=== PATIENT | male | born 1955 | race Two or more races ===

== ENCOUNTER 2016-08-16 21:42 | Inpatient (IN) | payer OTHER, MEDICAID ==
[~2016-08-16] VITALS: Ht 172.7 cm; Wt 144.0 kg
[~2016-08-16 21:42] MED LIST: ATOR10TA PO; CARV6.2551 PO; FUR40T PO
[2016-08-16 23:07] LABS: Basophils # (auto) 0 uL; Basophils % (auto) 0.4 % (0.0-2.0); CONDITION Y; DEFINITIVE SEE PRINTOUT; Eosinophils # (auto) 0.1 uL; Eosinophils % (auto) 1.1 % (0.0-7.0); Hematocrit 40.1 % (41.0-53.0); Hemoglobin 12.6 g/dL (13.5-17.5); Lymphocytes # (auto) 1.4 uL; Lymphocytes % (auto) 14.2 % (10.0-50.0); Mean Corpuscular Hemoglobin 27.2 pg (28.0-32.0); Mean Corpuscular Hgb Conc. 31.3 g/dL (32.0-36.0); Monocytes # (auto) 0.8 uL; Monocytes % (auto) 8.2 % (0.0-12.0); Neutrophils # (auto) 7.6 uL; Neutrophils % (auto) 76.1 % (37.0-80.0); Platelet Count (auto) 183 10^3/uL (140-450)
[2016-08-16 23:15] LABS: Allen Test Yes; Base Excess 2.6 mmol/L (-2.0-2.0); Blood 02Sat 93.2 % (96-100); Blood COHb 0.9 % (0.5-1.5); Blood MetHb 0.4 % (0.0-1.5); HCO3 29.4 mmol/L (22-26.0); HHb 6.7 % (0.0-5.0); MODE NASAL CANNULA; PCO2 55.1 mmHg (35.0-45.0); PCO2(T) 55.1 mmHg (35.0-45.0); PO2 75.7 mmHg (80.0-100.0); PO2(T) 75.7 mmHg (80.0-100.0); Sample Type Arterial; pH 7.345 (7.350-7.450)
[2016-08-16 23:22] LABS: Red Cell Distribution Width 22.9 % (11.6-16.0)
[2016-08-16 23:23] LABS: INR 1.01 (0.9-1.15); Partial Thromboplastin Time 30.6 sec (22.64-33.71)
[2016-08-16 23:27] LABS: Albumin 3.5 g/dL (3.4-5.0); Anion Gap 9 (5-15); Aspartate Aminotransferase 15 U/L (15-37); BUN/Creatinine Ratio 19.3; Blood Urea Nitrogen 17 mg/dL (7-18); Calcium 7.8 mg/dL (8.5-10.1); Carbon Dioxide 33 mmol/L (21-32); Chloride 103 mmol/L (98-107); GFR African American 114 mL/min; GFR Non-African American 94 mL/min; Glucose 116 mg/dL (74-106); Magnesium 2.3 mg/dL (1.6-2.6); Potassium 3.6 mmol/L (3.5-5.1); Sodium 145 mmol/L (136-145)
[2016-08-16 23:32] LABS: Alkaline Phosphatase 96 U/L (45-117); Bilirubin, Total 0.4 mg/dL (0.2-1.0); Total Protein 7.4 g/dL (6.4-8.2)
[2016-08-16 23:39] LABS: B-Type Natriuretic Peptide 171.66 pg/mL (0-100)
[2016-08-16 23:44] LABS: Temperature: 24.3 C (20.0-25.0)
[2016-08-17] MEDS ORDERED: IOHEXOL 350 MG/ML 100ML IJ ONE (00:32)
[2016-08-17 00:35] LABS: Anisocytosis Slight; Platelet Estimate Adequate
[2016-08-17] MEDS ORDERED: cefTRIAXone 1GM/50ML D5W 50 ML IV ONE (02:00)
[2016-08-17] MEDS ORDERED: AZITHROMYCIN 500MG/D5W 250ML 250 ML IV ONE (02:00)
[2016-08-17] MEDS ORDERED: SODIUM CHLORIDE 0.9% 500 ML IV ONE (02:00)
[2016-08-17] MEDS ORDERED: HYDROmorphone HCL 2 MG/ML VL IV PRN (06:00)
[2016-08-17] MEDS ORDERED: DEXTROSE (50%) 50ML SYRG IV PRN (06:00)
[2016-08-17] MEDS ORDERED: NITROGLYCERIN 0.4 MG SL TAB SL PRN (06:00)
[2016-08-17] MEDS ORDERED: MORPHINE SULF INJ 2 MG/ML SYRINGE 1ML IV PRN (06:00)
[2016-08-17] MEDS ORDERED: LACTULOSE 20Gm/30ML SOLN PO PRN (06:00)
[2016-08-17] MEDS ORDERED: methylPREDNISolone SOD SUCC 125 MG/2 ML VL IV SCH (06:00)
[2016-08-17] MEDS: SODIUM CHLOR 0.9% PF (SALINE LOCK) 10ML VIAL IV SCH ×3 (06:15→21:59)
[2016-08-17] MEDS: methylPREDNISolone SOD SUCC 125 MG/2 ML VL IV SCH ×2 (06:23→09:59)
[2016-08-17] MEDS: ACCU-CHEK COMFORT CURVE STRIP VI SCH ×3 (06:23→18:12)
[2016-08-17] MEDS: InsuLIN REG 1unit/0.01ml Soln (100units/ml) SC SCH ×3 (06:30→18:12)
[2016-08-17] MEDS: IPRATROPIUM BROM 0.5 MG/2.5ML INH SOL NEB SCH ×5 (07:30→21:42)
[2016-08-17] MEDS: ALBUTEROL SULF 2.5 MG/0.5ML(0.5%) NEB SOLN NEB SCH ×5 (07:30→21:42)
[2016-08-17] MEDS: cefTRIAXone 1GM/50ML D5W 50 ML IV SCH (08:23)
[2016-08-17] MEDS: CARVEDILOL 3.125 MG TAB PO SCH ×2 (09:59→21:59)
[2016-08-17] MEDS: PANTOPRAZOLE SODIUM 40 MG/10 ML VIAL IV SCH (09:59)
[2016-08-17] MEDS: AZITHROMYCIN 500MG/D5W 250ML 250 ML IV SCH (09:59)
[2016-08-17] MEDS ORDERED: POTASSIUM CHLORIDE 8 MEQ TAB PO SCH (10:00)
[2016-08-17] MEDS ORDERED: DIGOXIN 0.125 MG TAB PO SCH (10:00)
[2016-08-17] MEDS: ENOXAPARIN SOD 40 MG/0.4 ML SYRINGE SC SCH (10:00)
[2016-08-17] MEDS ORDERED: FUROSEMIDE 40 MG/4 ML VIAL IV SCH (10:00)
[2016-08-17] MEDS: RIVAROXABAN 20 MG TAB PO SCH (17:57)
[2016-08-17 20:00] VITALS: BP 131/89
[2016-08-17 21:00] VITALS: BP 131/89
[2016-08-17] MEDS: FUROSEMIDE 40 MG/4 ML VIAL IV SCH (21:57)
[2016-08-17] MEDS: ATORVASTATIN 20 MG TAB PO SCH (21:57)
[2016-08-17] MEDS: ENALAPRIL MALEATE 2.5 MG TAB PO SCH (21:58)
[2016-08-17] MEDS: POTASSIUM CHLORIDE 8 MEQ TAB PO SCH (21:58)
[2016-08-18] VITALS (7 sets, daily range): BP systolic 110–149; BP diastolic 67–83
[2016-08-18] MEDS: IPRATROPIUM BROM 0.5 MG/2.5ML INH SOL NEB SCH ×6 (01:20→22:30)
[2016-08-18] MEDS: ALBUTEROL SULF 2.5 MG/0.5ML(0.5%) NEB SOLN NEB SCH ×6 (01:20→22:30)
[2016-08-18] MEDS: SODIUM CHLOR 0.9% PF (SALINE LOCK) 10ML VIAL IV SCH ×3 (06:05→21:56)
[2016-08-18] MEDS: InsuLIN REG 1unit/0.01ml Soln (100units/ml) SC SCH ×5 (06:05→23:51)
[2016-08-18] MEDS: ACCU-CHEK COMFORT CURVE STRIP VI SCH ×5 (06:05→23:51)
[2016-08-18 07:43] LABS: Basophils # (auto) 0 uL; CONDITION Y; DEFINITIVE SEE PRINTOUT; Eosinophils # (auto) 0 uL; Hemoglobin 12.2 g/dL (13.5-17.5); Lymphocytes # (auto) 0.6 uL; Lymphocytes % (auto) 6.1 % (10.0-50.0); Mean Corpuscular Hemoglobin 27.8 pg (28.0-32.0); Mean Corpuscular Hgb Conc. 32.1 g/dL (32.0-36.0); Mean Corpuscular Volume 86.6 fL (80.0-100.0); Mean Platelet Volume 9.3 fL (7.4-10.4); Monocytes # (auto) 0.3 uL; Monocytes % (auto) 2.9 % (0.0-12.0); Neutrophils # (auto) 8.8 uL; Platelet Count (auto) 183 10^3/uL (140-450); White Blood Cell 9.6 10^3/uL (4.4-10.8)
[2016-08-18 07:47] LABS: Red Cell Distribution Width 22.5 % (11.6-16.0)
[2016-08-18 07:53] LABS: Albumin 3.4 g/dL (3.4-5.0); BUN/Creatinine Ratio 24.6; Bilirubin, Total 0.4 mg/dL (0.2-1.0); Calcium 8.4 mg/dL (8.5-10.1); Potassium 4.2 mmol/L (3.5-5.1); Total Protein 7.2 g/dL (6.4-8.2)
[2016-08-18] MEDS: cefTRIAXone 1GM/50ML D5W 50 ML IV SCH (08:01)
[2016-08-18] MEDS ORDERED: DIGOXIN 0.125 MG TAB PO ONE (10:15)
[2016-08-18 10:16] LABS: Anisocytosis Slight; Platelet Estimate Adequate
[2016-08-18] MEDS: AZITHROMYCIN 500MG/D5W 250ML 250 ML IV SCH (10:18)
[2016-08-18] MEDS: POTASSIUM CHLORIDE 8 MEQ TAB PO SCH ×2 (10:20→21:56)
[2016-08-18] MEDS: CARVEDILOL 3.125 MG TAB PO SCH ×2 (10:20→21:57)
[2016-08-18] MEDS: ENALAPRIL MALEATE 2.5 MG TAB PO SCH ×2 (10:21→21:56)
[2016-08-18] MEDS: ENOXAPARIN SOD 40 MG/0.4 ML SYRINGE SC SCH (10:23)
[2016-08-18] MEDS: PANTOPRAZOLE SODIUM 40 MG/10 ML VIAL IV SCH (10:23)
[2016-08-18] MEDS: methylPREDNISolone SOD SUCC 125 MG/2 ML VL IV SCH (10:24)
[2016-08-18] MEDS: FUROSEMIDE 40 MG/4 ML VIAL IV SCH ×2 (10:24→21:56)
[2016-08-18] MEDS ORDERED: DIGO1TAB35 PO (11:14)
[2016-08-18] MEDS: RIVAROXABAN 20 MG TAB PO SCH (17:58)
[2016-08-18] MEDS: ATORVASTATIN 20 MG TAB PO SCH (21:56)
[2016-08-19 05:00] VITALS: BP 94/70
[2016-08-19] MEDS: SODIUM CHLOR 0.9% PF (SALINE LOCK) 10ML VIAL IV SCH (06:01)
[2016-08-19] MEDS: ACCU-CHEK COMFORT CURVE STRIP VI SCH (06:01)
[2016-08-19] MEDS: InsuLIN REG 1unit/0.01ml Soln (100units/ml) SC SCH (06:01)
[2016-08-19 06:03] LABS: BUN/Creatinine Ratio 30.6; Calcium 8.5 mg/dL (8.5-10.1); Potassium 4.1 mmol/L (3.5-5.1)
[2016-08-19] MEDS: ALBUTEROL SULF 2.5 MG/0.5ML(0.5%) NEB SOLN NEB SCH ×2 (06:11→09:59)
[2016-08-19] MEDS: IPRATROPIUM BROM 0.5 MG/2.5ML INH SOL NEB SCH ×2 (06:11→09:59)
[2016-08-19 08:03] VITALS: BP 100/58
[2016-08-19 09:00] VITALS: BP 100/58
[2016-08-19] MEDS: cefTRIAXone 1GM/50ML D5W 50 ML IV SCH (09:58)
[2016-08-19] MEDS: AZITHROMYCIN 500MG/D5W 250ML 250 ML IV SCH (10:00)
[2016-08-19] MEDS: ENALAPRIL MALEATE 2.5 MG TAB PO SCH (10:00)
[2016-08-19] MEDS ORDERED: DIGOXIN 0.125 MG TAB PO SCH (10:00)
[2016-08-19] MEDS: PANTOPRAZOLE SODIUM 40 MG/10 ML VIAL IV SCH (10:00)
[2016-08-19] MEDS: ENOXAPARIN SOD 40 MG/0.4 ML SYRINGE SC SCH (10:00)
[2016-08-19] MEDS: FUROSEMIDE 40 MG/4 ML VIAL IV SCH (10:39)
[2016-08-19] MEDS: POTASSIUM CHLORIDE 8 MEQ TAB PO SCH (10:40)
[2016-08-19] MEDS: CARVEDILOL 3.125 MG TAB PO SCH (10:40)
[2016-08-19 10:55] VITALS: BP 100/58
== END 2016-08-19 12:04 | disposition home or self-care (01) | DRG 291 ==
LOC: ER 21:45 → TELE 21:46 → TELE-E-ADS 08-17 15:45 → TELE-CENTR 08-17 17:36
PROVIDERS: ADMIT Family Medicine; ATTEND Internal Medicine
PROC: 5A09357 Assistance with Respiratory Ventilation, Less than 24 Consecutive Hours, Continuous Positive Airway Pressure (ICD-10-PCS; principal; 2016-08-16)
DX: I11.0 Hypertensive heart disease with heart failure (principal); J96.00 Acute respiratory failure, unspecified whether with hypoxia or hypercapnia; J18.9 Pneumonia, unspecified organism; J44.1 Chronic obstructive pulmonary disease with (acute) exacerbation; Z68.42 Body mass index [BMI] 45.0-49.9, adult; J44.0 Chronic obstructive pulmonary disease with (acute) lower respiratory infection; I50.43 Acute on chronic combined systolic (congestive) and diastolic (congestive) heart failure; I48.0 Paroxysmal atrial fibrillation; E11.9 Type 2 diabetes mellitus without complications; G47.30 Sleep apnea, unspecified; E66.8 Other obesity; I27.2 Other secondary pulmonary hypertension; I48.91 Unspecified atrial fibrillation; E66.01 Morbid (severe) obesity due to excess calories; I25.10 Atherosclerotic heart disease of native coronary artery without angina pectoris; Z79.01 Long term (current) use of anticoagulants
CPT/HCPCS: 36415; 36600; 71010; 71275; 80048; 80053; 80061; 82805; 82962; 83036; 83605; 83735; 83880; 84484; 85025; 85610; 85730; 87040; 87070; 87205; 93005; 94640; 94660; 94761; 96365; 96366; 96367; 96372; 96375; C9113; J0696; J1815

== ENCOUNTER 2016-08-24 05:40 | Inpatient (IN) | payer OTHER, MEDICAID ==
[~2016-08-24] VITALS: Ht 182.9 cm; Wt 134.6 kg
[2016-08-24] VITALS (7 sets, daily range): BP systolic 103–116; BP diastolic 58–75
[~2016-08-24 05:40] MED LIST changes: +DIGO1TAB35 PO
[2016-08-24 06:14] LABS: Basophils # (auto) 0 uL; Basophils % (auto) 0.3 % (0.0-2.0); CONDITION Y; DEFINITIVE SEE PRINTOUT; Eosinophils # (auto) 0.2 uL; Eosinophils % (auto) 2.1 % (0.0-7.0); Hematocrit 41.1 % (41.0-53.0); Hemoglobin 13.3 g/dL (13.5-17.5); Lymphocytes # (auto) 1.3 uL; Lymphocytes % (auto) 14.2 % (10.0-50.0); Mean Corpuscular Hemoglobin 27.5 pg (28.0-32.0); Mean Corpuscular Hgb Conc. 32.2 g/dL (32.0-36.0); Mean Corpuscular Volume 85.2 fL (80.0-100.0); Mean Platelet Volume 9.4 fL (7.4-10.4); Monocytes % (auto) 11.5 % (0.0-12.0); Neutrophils # (auto) 6.4 uL; Neutrophils % (auto) 71.9 % (37.0-80.0); Platelet Count (auto) 196 10^3/uL (140-450); White Blood Cell 8.8 10^3/uL (4.4-10.8)
[2016-08-24 06:22] LABS: Red Cell Distribution Width 20.7 % (11.6-16.0)
[2016-08-24 06:28] LABS: INR 1.16 (0.9-1.15); Partial Thromboplastin Time 31.9 sec (22.64-33.71)
[2016-08-24] MEDS ORDERED: SODIUM CHLORIDE 0.9% 1,000 ML IV ONE (06:29)
[2016-08-24] MEDS ORDERED: DILTIAZEM HCL 25 MG/5 ML VIAL IV ONE (06:30)
[2016-08-24] MEDS ORDERED: ALBUTEROL SULF 2.5 MG/0.5ML(0.5%) NEB SOLN NEB ONE (06:30)
[2016-08-24] MEDS ORDERED: IPRATROPIUM BROM 0.5 MG/2.5ML INH SOL NEB ONE (06:30)
[2016-08-24] MEDS ORDERED: ASPirin 81 mg TAB PO ONE (06:30)
[2016-08-24 06:42] LABS: Albumin 3.4 g/dL (3.4-5.0); BUN/Creatinine Ratio 9.4; Bilirubin, Total 0.8 mg/dL (0.2-1.0); Calcium 8.2 mg/dL (8.5-10.1); Magnesium 2.2 mg/dL (1.6-2.6); Potassium 3.7 mmol/L (3.5-5.1); Prothrombin Time 12.7 sec (9.37-12.3); Total Protein 6.9 g/dL (6.4-8.2)
[2016-08-24 06:52] LABS: Anisocytosis Slight; Large Platelets FEW
[2016-08-24 06:53] LABS: Ovalocytes FEW; Platelet Estimate Adequa
[2016-08-24 07:12] LABS: B-Type Natriuretic Peptide 210.22 pg/mL (0-100)
[2016-08-24 07:26] LABS: Temperature: 23.4 C (20.0-25.0)
[2016-08-24] MEDS ORDERED: IOHEXOL 350 MG/ML 100ML IJ ONE (10:44)
[2016-08-24] MEDS ORDERED: DEXTROSE (50%) 50ML SYRG IV PRN (10:45)
[2016-08-24] MEDS ORDERED: HYDROcodone-ACET 5/325MG TAB PO PRN (10:45)
[2016-08-24] MEDS ORDERED: LORazepam 0.5 MG TAB PO PRN (10:45)
[2016-08-24] MEDS ORDERED: TEMAZEPAM 15 MG CAP PO PRN (10:45)
[2016-08-24] MEDS ORDERED: NITROGLYCERIN 0.4 MG SL TAB SL PRN (10:45)
[2016-08-24] MEDS ORDERED: DIGOXIN 0.125 MG TAB PO ONE (10:45)
[2016-08-24] MEDS ORDERED: CARVEDILOL 3.125 MG TAB PO ONE ×2 (10:45→11:00)
[2016-08-24] MEDS ORDERED: ONDANSETRON HCL 4 MG/2 ML VIAL IV PRN (10:45)
[2016-08-24] MEDS ORDERED: HYDROmorphone HCL 2 MG/ML VL IV PRN (10:45)
[2016-08-24] MEDS ORDERED: LACTULOSE 20Gm/30ML SOLN PO PRN (10:45)
[2016-08-24] MEDS ORDERED: ALBUTEROL SULF 2.5 MG/0.5ML(0.5%) NEB SOLN NEB PRN (10:45)
[2016-08-24] MEDS ORDERED: ENOXAPARIN SOD 40 MG/0.4 ML SYRINGE SC ONE (11:00)
[2016-08-24] MEDS ORDERED: FUROSEMIDE 40 MG/4 ML VIAL IV ONE (11:00)
[2016-08-24] MEDS ORDERED: FUROSEMIDE 40 MG TAB PO ONE (11:00)
[2016-08-24] MEDS: ACCU-CHEK COMFORT CURVE STRIP VI SCH ×3 (12:00→22:16)
[2016-08-24] MEDS: methylPREDNISolone SOD SUCC 40 MG/ML VL IV SCH ×2 (12:00→22:16)
[2016-08-24] MEDS ORDERED: LORazepam 2MG/ML-1ML VIAL ONE (12:16)
[2016-08-24] MEDS: InsuLIN REG 1unit/0.01ml Soln (100units/ml) SC SCH ×3 (12:17→22:17)
[2016-08-24] MEDS ORDERED: SUCCINYLCHOLINE CHLORIDE 20 MG/ML 10ML VIAL IV ONE (12:24)
[2016-08-24] MEDS ORDERED: ROCURONIUM 10MG/ML 10ML VIAL IV ONE (12:24)
[2016-08-24] MEDS ORDERED: ETOMIDATE (2MG/ML) 20ML VIAL IV ONE (12:24)
[2016-08-24] MEDS ORDERED: MIDAZOLAM DRIP 50 mg/50mL 50 ML IV ONE (12:25)
[2016-08-24] MEDS ORDERED: MIDAZOLAM DRIP 50 mg/50mL 50 ML IV SCH (12:34)
[2016-08-24] MEDS ORDERED: LORazepam 2MG/ML-1ML VIAL IV ONE (12:45)
[2016-08-24 13:10] LABS: Allen Test Yes; Base Excess -1.5 mmol/L (-2.0-2.0); Blood 02Sat 97.6 % (96-100); Blood COHb 0.9 % (0.5-1.5); Blood MetHb 0.5 % (0.0-1.5); HCO3 28.1 mmol/L (22-26.0); HHb 2.4 % (0.0-5.0); MODE VENT - A/C; O2Hb 96.2 % (94.0-97.0); PCO2 71.3 mmHg (35.0-45.0); PCO2(T) 71.3 mmHg (35.0-45.0); PO2 135.4 mmHg (80.0-100.0); PO2(T) 135.4 mmHg (80.0-100.0); Room 1009-ERT; Sample Type Arterial; pH 7.214 (7.350-7.450)
[2016-08-24] MEDS ORDERED: LORazepam 2MG/ML-1ML VIAL IV PRN (13:30)
[2016-08-24] MEDS: IPRATROPIUM BROM 0.5 MG/2.5ML INH SOL NEB SCH ×2 (14:00→18:52)
[2016-08-24] MEDS: MIDAZOLAM DRIP 50 mg/50mL 50 ML IV SCH (14:11)
[2016-08-24] MEDS: PROPOFOL 100 ML IV SCH (14:12)
[2016-08-24] MEDS ORDERED: RIVAROXABAN 20 MG TAB PO SCH (18:00)
[2016-08-24] MEDS: ALBUTEROL SULF 2.5 MG/0.5ML(0.5%) NEB SOLN NEB SCH (18:52)
[2016-08-24] MEDS ORDERED: ENOXAPARIN SOD 40 MG/0.4 ML SYRINGE SC SCH (22:00)
[2016-08-24] MEDS: CARVEDILOL 3.125 MG TAB PO SCH (22:17)
[2016-08-25] VITALS (12 sets, daily range): BP systolic 86–118; BP diastolic 48–79
[2016-08-25 01:44] LABS: Allen Test Modified; Base Excess 3.6 mmol/L (-2.0-2.0); Blood 02Sat 93.1 % (96-100); Blood COHb 0.8 % (0.5-1.5); Blood MetHb 0.4 % (0.0-1.5); HCO3 29.6 mmol/L (22-26.0); HHb 6.8 % (0.0-5.0); MODE VENT - A/C; PCO2 50.3 mmHg (35.0-45.0); PCO2(T) 50.3 mmHg (35.0-45.0); PO2 72.3 mmHg (80.0-100.0); PO2(T) 72.3 mmHg (80.0-100.0); Room 1009-ERT; Sample Type Arterial; pH 7.388 (7.350-7.450)
[2016-08-25] MEDS: ALBUTEROL SULF 2.5 MG/0.5ML(0.5%) NEB SOLN NEB SCH ×5 (01:46→22:21)
[2016-08-25] MEDS: IPRATROPIUM BROM 0.5 MG/2.5ML INH SOL NEB SCH ×5 (01:46→22:21)
[2016-08-25 05:53] LABS: Basophils # (auto) 0 uL; Basophils % (auto) 0.1 % (0.0-2.0); CONDITION Y; DEFINITIVE SEE PRINTOUT; Eosinophils # (auto) 0 uL; Hematocrit 41.7 % (41.0-53.0); Hemoglobin 13.1 g/dL (13.5-17.5); Lymphocytes # (auto) 0.5 uL; Lymphocytes % (auto) 6.7 % (10.0-50.0); Mean Corpuscular Hemoglobin 26.8 pg (28.0-32.0); Mean Corpuscular Hgb Conc. 31.4 g/dL (32.0-36.0); Mean Corpuscular Volume 85.5 fL (80.0-100.0); Mean Platelet Volume 9.6 fL (7.4-10.4); Monocytes # (auto) 0.2 uL; Monocytes % (auto) 2.4 % (0.0-12.0); Neutrophils # (auto) 6.8 uL; Neutrophils % (auto) 90.8 % (37.0-80.0); Platelet Count (auto) 196 10^3/uL (140-450); SUSPECT SEE PRINTOUT; White Blood Cell 7.5 10^3/uL (4.4-10.8)
[2016-08-25 06:03] LABS: Red Cell Distribution Width 20.9 % (11.6-16.0)
[2016-08-25 06:07] LABS: INR 1.15 (0.9-1.15); Partial Thromboplastin Time 32.4 sec (22.64-33.71)
[2016-08-25 06:09] LABS: Prothrombin Time 12.5 sec (9.37-12.3)
[2016-08-25 06:12] LABS: Calcium 8.5 mg/dL (8.5-10.1)
[2016-08-25 06:49] LABS: Anisocytosis Slight; Ovalocytes FEW; Platelet Estimate Adequate
[2016-08-25] MEDS: ACCU-CHEK COMFORT CURVE STRIP VI SCH ×4 (07:17→22:47)
[2016-08-25] MEDS: InsuLIN REG 1unit/0.01ml Soln (100units/ml) SC SCH ×4 (07:17→22:47)
[2016-08-25] MEDS: CARVEDILOL 3.125 MG TAB PO SCH ×2 (10:00→22:00)
[2016-08-25] MEDS: PROPOFOL 100 ML IV SCH ×2 (13:20→20:18)
[2016-08-25] MEDS: MIDAZOLAM DRIP 50 mg/50mL 50 ML IV SCH (13:20)
[2016-08-25 14:13] LABS: Urine Bilirubin Negative (Negative); Urine Color Yellow (Yellow); Urine Glucose Normal (Normal); Urine Hyaline Cast MANY /lpf (0 - 2); Urine Mucus FEW (None Seen); Urine Nitrite Negative (Negative); Urine RBC 31 /hpf (0 - 3); Urine Urobilinogen Normal (Negative)
[2016-08-25 14:26] LABS: Urine Blood 2+ /uL (Negative); Urine Ketone 2+ (Negative)
[2016-08-25] MEDS: DIGOXIN 0.125 MG TAB PO SCH (15:54)
[2016-08-25] MEDS: FUROSEMIDE 40 MG TAB PO SCH (15:54)
[2016-08-25 18:24] LABS: Allen Test Modified; Base Excess 5.9 mmol/L (-2.0-2.0); Blood 02Sat 90.5 % (96-100); Blood COHb 0.2 % (0.5-1.5); Blood MetHb 0.3 % (0.0-1.5); HCO3 29.8 mmol/L (22-26.0); HHb 9.5 % (0.0-5.0); MODE VENT - A/C; PCO2 40.8 mmHg (35.0-45.0); PCO2(T) 40.8 mmHg (35.0-45.0); PO2 60.5 mmHg (80.0-100.0); PO2(T) 60.5 mmHg (80.0-100.0); Room 1009-ERT; Sample Type Arterial; pH 7.482 (7.350-7.450)
[2016-08-25] MEDS: fentaNYL Drip 2500mCg/250mlNS 250 ML IV SCH (18:52)
[2016-08-25] MEDS: NOREPINEPHRINE BITARTRATE 250 ML IV SCH (18:52)
[2016-08-25] MEDS: methylPREDNISolone SOD SUCC 125 MG/2 ML VL IV SCH (18:52)
[2016-08-25] MEDS: BUDESONIDE (INHALATION) 0.5 MG/2 ML NEB NEB SCH (22:21)
[2016-08-26] VITALS (75 sets, daily range): BP systolic 98–146; BP diastolic 52–97
[2016-08-26] MEDS: methylPREDNISolone SOD SUCC 125 MG/2 ML VL IV SCH ×4 (00:06→18:36)
[2016-08-26] MEDS: ALBUTEROL SULF 2.5 MG/0.5ML(0.5%) NEB SOLN NEB SCH ×6 (02:21→22:14)
[2016-08-26] MEDS: IPRATROPIUM BROM 0.5 MG/2.5ML INH SOL NEB SCH ×6 (02:21→22:14)
[2016-08-26] MEDS: BUDESONIDE (INHALATION) 0.5 MG/2 ML NEB NEB SCH ×2 (05:53→18:54)
[2016-08-26] MEDS ORDERED: DEXTROSE (50%) 50ML SYRG IV PRN (08:15)
[2016-08-26 08:31] LABS: Basophils # (auto) 0 uL; Basophils % (auto) 0.3 % (0.0-2.0); CONDITION Y; DEFINITIVE SEE PRINTOUT; Eosinophils # (auto) 0 uL; Hematocrit 42.8 % (41.0-53.0); Hemoglobin 13.6 g/dL (13.5-17.5); Lymphocytes # (auto) 0.5 uL; Lymphocytes % (auto) 3.1 % (10.0-50.0); Mean Corpuscular Hgb Conc. 31.6 g/dL (32.0-36.0); Mean Corpuscular Volume 85.2 fL (80.0-100.0); Mean Platelet Volume 9.7 fL (7.4-10.4); Monocytes # (auto) 0.6 uL; Monocytes % (auto) 3.6 % (0.0-12.0); Platelet Count (auto) 239 10^3/uL (140-450); SUSPECT SEE PRINTOUT; White Blood Cell 16.1 10^3/uL (4.4-10.8)
[2016-08-26 08:38] LABS: Allen Test Yes; Base Excess 6.3 mmol/L (-2.0-2.0); Blood 02Sat 92.3 % (96-100); Blood COHb 0.7 % (0.5-1.5); Blood MetHb 0.3 % (0.0-1.5); HHb 7.6 % (0.0-5.0); MODE VENT - A/C; O2Hb 91.4 % (94.0-97.0); PCO2 39.6 mmHg (35.0-45.0); PCO2(T) 39.6 mmHg (35.0-45.0); PO2 66.9 mmHg (80.0-100.0); PO2(T) 66.9 mmHg (80.0-100.0); Sample Type Arterial; pH 7.497 (7.350-7.450)
[2016-08-26 08:47] LABS: Red Cell Distribution Width 20.9 % (11.6-16.0)
[2016-08-26 08:54] LABS: BUN/Creatinine Ratio 20.4; Calcium 9.1 mg/dL (8.5-10.1); Potassium 3.9 mmol/L (3.5-5.1)
[2016-08-26] MEDS: PROPOFOL 100 ML IV SCH (09:00)
[2016-08-26 09:31] LABS: Platelet Estimate Adequate
[2016-08-26 09:33] LABS: Large Platelets FEW; Ovalocytes FEW
[2016-08-26 09:35] LABS: Anisocytosis Slight
[2016-08-26] MEDS: DIGOXIN 0.125 MG TAB PO SCH (10:21)
[2016-08-26] MEDS: MIDAZOLAM DRIP 50 mg/50mL 50 ML IV SCH ×2 (10:21→12:00)
[2016-08-26] MEDS: FUROSEMIDE 40 MG TAB PO SCH (10:22)
[2016-08-26] MEDS: CARVEDILOL 3.125 MG TAB PO SCH ×2 (10:22→22:00)
[2016-08-26] MEDS: ACCU-CHEK COMFORT CURVE STRIP VI SCH ×2 (12:00→18:11)
[2016-08-26 12:08] LABS: Allen Test Yes; Base Excess 6.7 mmol/L (-2.0-2.0); Blood 02Sat 94.6 % (96-100); Blood COHb 0.6 % (0.5-1.5); Blood MetHb 0.3 % (0.0-1.5); HCO3 31.2 mmol/L (22-26.0); HHb 5.4 % (0.0-5.0); MODE VENT - A/C; O2Hb 93.7 % (94.0-97.0); PCO2 43.9 mmHg (35.0-45.0); PCO2(T) 43.9 mmHg (35.0-45.0); PO2 81.2 mmHg (80.0-100.0); PO2(T) 81.2 mmHg (80.0-100.0); Sample Type Arterial
[2016-08-26] MEDS: InsuLIN REG 1unit/0.01ml Soln (100units/ml) SC SCH ×2 (12:57→18:37)
[2016-08-26] MEDS: DOXYCYCLINE HYC 100MG/250ML 250 ML IV SCH ×2 (13:25→23:11)
[2016-08-26] MEDS ORDERED: AZITTAB6 PO (17:13)
[2016-08-26] MEDS ORDERED: RIVA20TA PO (17:17)
[2016-08-26] MEDS ORDERED: CAR3125T PO (17:17)
[2016-08-26] MEDS ORDERED: POTA10SO11 GT (17:17)
[2016-08-26] MEDS: NOREPINEPHRINE BITARTRATE 250 ML IV SCH (17:42)
[2016-08-26] MEDS: fentaNYL Drip 2500mCg/250mlNS 250 ML IV SCH (17:42)
[2016-08-27] VITALS (100 sets, daily range): BP systolic 86–123; BP diastolic 46–102
[2016-08-27] MEDS: InsuLIN REG 1unit/0.01ml Soln (100units/ml) SC SCH ×4 (01:15→17:45)
[2016-08-27] MEDS: ACCU-CHEK COMFORT CURVE STRIP VI SCH ×4 (01:15→17:45)
[2016-08-27] MEDS: methylPREDNISolone SOD SUCC 125 MG/2 ML VL IV SCH ×4 (01:15→17:38)
[2016-08-27] MEDS: ALBUTEROL SULF 2.5 MG/0.5ML(0.5%) NEB SOLN NEB SCH ×5 (02:06→22:00)
[2016-08-27] MEDS: IPRATROPIUM BROM 0.5 MG/2.5ML INH SOL NEB SCH ×5 (02:06→22:00)
[2016-08-27 04:04] LABS: Basophils # (auto) 0 uL; CONDITION Y; DEFINITIVE SEE PRINTOUT; Eosinophils # (auto) 0 uL; Hematocrit 41.3 % (41.0-53.0); Lymphocytes # (auto) 0.4 uL; Lymphocytes % (auto) 4.5 % (10.0-50.0); Mean Corpuscular Hemoglobin 27.2 pg (28.0-32.0); Mean Corpuscular Hgb Conc. 31.5 g/dL (32.0-36.0); Mean Corpuscular Volume 86.4 fL (80.0-100.0); Mean Platelet Volume 9.7 fL (7.4-10.4); Monocytes # (auto) 0.4 uL; Monocytes % (auto) 4.3 % (0.0-12.0); Neutrophils # (auto) 8.1 uL; Neutrophils % (auto) 91.2 % (37.0-80.0); Platelet Count (auto) 188 10^3/uL (140-450); White Blood Cell 8.9 10^3/uL (4.4-10.8)
[2016-08-27 04:45] LABS: Anisocytosis Slight; Ovalocytes FEW; Platelet Estimate Adequate
[2016-08-27 04:46] LABS: Large Platelets FEW
[2016-08-27 06:10] LABS: BUN/Creatinine Ratio 26.7; Calcium 8.3 mg/dL (8.5-10.1); Potassium 3.5 mmol/L (3.5-5.1)
[2016-08-27 06:13] LABS: Bilirubin, Total 0.5 mg/dL (0.2-1.0); Total Protein 6.8 g/dL (6.4-8.2)
[2016-08-27] MEDS: PROPOFOL 100 ML IV SCH ×4 (07:48→21:20)
[2016-08-27] MEDS: MIDAZOLAM DRIP 50 mg/50mL 50 ML IV SCH ×2 (07:48→14:53)
[2016-08-27 09:26] LABS: Allen Test Yes; Base Excess 8.8 mmol/L (-2.0-2.0); Blood COHb 0.8 % (0.5-1.5); Blood MetHb 0.3 % (0.0-1.5); HCO3 34.1 mmol/L (22-26.0); HHb 6.9 % (0.0-5.0); MODE VENT - A/C; PCO2 48.8 mmHg (35.0-45.0); PCO2(T) 48.8 mmHg (35.0-45.0); PO2 74.2 mmHg (80.0-100.0); PO2(T) 74.2 mmHg (80.0-100.0); Sample Type Arterial; pH 7.462 (7.350-7.450)
[2016-08-27] MEDS: Nutren Pulmonary 1 Liter GT SCH (09:40)
[2016-08-27] MEDS: DOXYCYCLINE HYC 100MG/250ML 250 ML IV SCH (09:57)
[2016-08-27] MEDS: FUROSEMIDE 40 MG TAB PO SCH (09:58)
[2016-08-27] MEDS: DIGOXIN 0.125 MG TAB PO SCH (09:58)
[2016-08-27] MEDS: CARVEDILOL 3.125 MG TAB PO SCH ×2 (09:58→21:31)
[2016-08-27] MEDS: BUDESONIDE (INHALATION) 0.5 MG/2 ML NEB NEB SCH ×2 (10:27→22:00)
[2016-08-27] MEDS: NOREPINEPHRINE BITARTRATE 250 ML IV SCH (14:40)
[2016-08-27] MEDS: fentaNYL Drip 2500mCg/250mlNS 250 ML IV SCH (14:40)
[2016-08-27] MEDS: PANTOPRAZOLE SODIUM 40 MG/10 ML VIAL IV SCH (18:30)
[2016-08-27] MEDS: ENOXAPARIN SOD 150 MG/1 ML SYRINGE SC SCH (21:31)
[2016-08-28] VITALS (105 sets, daily range): BP systolic 91–142; BP diastolic 6–112
[2016-08-28] MEDS: methylPREDNISolone SOD SUCC 125 MG/2 ML VL IV SCH ×4 (00:25→17:56)
[2016-08-28] MEDS: DOXYCYCLINE HYC 100MG/250ML 250 ML IV SCH ×3 (00:25→23:28)
[2016-08-28] MEDS: ACCU-CHEK COMFORT CURVE STRIP VI SCH ×4 (00:25→17:56)
[2016-08-28] MEDS: InsuLIN REG 1unit/0.01ml Soln (100units/ml) SC SCH ×4 (00:34→17:56)
[2016-08-28] MEDS: PROPOFOL 100 ML IV SCH ×2 (00:43→04:46)
[2016-08-28] MEDS: ALBUTEROL SULF 2.5 MG/0.5ML(0.5%) NEB SOLN NEB SCH ×5 (06:23→21:52)
[2016-08-28] MEDS: IPRATROPIUM BROM 0.5 MG/2.5ML INH SOL NEB SCH ×5 (06:23→21:52)
[2016-08-28 09:00] LABS: Basophils # (auto) 0 uL; CONDITION Y; DEFINITIVE SEE PRINTOUT; Eosinophils # (auto) 0 uL; Eosinophils % (auto) 0.2 % (0.0-7.0); Hematocrit 41.4 % (41.0-53.0); Hemoglobin 13.1 g/dL (13.5-17.5); Lymphocytes # (auto) 0.4 uL; Lymphocytes % (auto) 4.3 % (10.0-50.0); Mean Corpuscular Hemoglobin 26.9 pg (28.0-32.0); Mean Corpuscular Hgb Conc. 31.6 g/dL (32.0-36.0); Mean Corpuscular Volume 85.1 fL (80.0-100.0); Mean Platelet Volume 9.7 fL (7.4-10.4); Monocytes # (auto) 0.3 uL; Monocytes % (auto) 3.3 % (0.0-12.0); Neutrophils # (auto) 7.8 uL; Neutrophils % (auto) 92.2 % (37.0-80.0); Platelet Count (auto) 170 10^3/uL (140-450); White Blood Cell 8.5 10^3/uL (4.4-10.8)
[2016-08-28 09:07] LABS: Red Cell Distribution Width 20.3 % (11.6-16.0)
[2016-08-28 09:19] LABS: Albumin 2.9 g/dL (3.4-5.0); Calcium 8.2 mg/dL (8.5-10.1); Potassium 3.5 mmol/L (3.5-5.1)
[2016-08-28 09:28] LABS: Bilirubin, Total 0.4 mg/dL (0.2-1.0); Total Protein 6.7 g/dL (6.4-8.2)
[2016-08-28 09:38] LABS: Anisocytosis Slight; Hypochromia Slight; Ovalocytes FEW; Platelet Estimate Adequate
[2016-08-28 09:39] LABS: Large Platelets FEW
[2016-08-28] MEDS: CARVEDILOL 3.125 MG TAB PO SCH ×2 (10:00→22:38)
[2016-08-28] MEDS: PANTOPRAZOLE SODIUM 40 MG/10 ML VIAL IV SCH (10:26)
[2016-08-28] MEDS: ENOXAPARIN SOD 150 MG/1 ML SYRINGE SC SCH ×2 (10:26→22:00)
[2016-08-28] MEDS: FUROSEMIDE 40 MG TAB PO SCH (10:27)
[2016-08-28] MEDS: DIGOXIN 0.125 MG TAB PO SCH (10:27)
[2016-08-28] MEDS: MIDAZOLAM DRIP 50 mg/50mL 50 ML IV SCH (10:27)
[2016-08-28] MEDS: BUDESONIDE (INHALATION) 0.5 MG/2 ML NEB NEB SCH ×2 (11:03→21:52)
[2016-08-28] MEDS: fentaNYL Drip 2500mCg/250mlNS 250 ML IV SCH (13:11)
[2016-08-28] MEDS: Nutren Pulmonary 1 Liter GT SCH (13:35)
[2016-08-28] MEDS: NOREPINEPHRINE BITARTRATE 250 ML IV SCH (16:34)
[2016-08-29] VITALS (100 sets, daily range): BP systolic 91–177; BP diastolic 39–113
[2016-08-29] MEDS: IPRATROPIUM BROM 0.5 MG/2.5ML INH SOL NEB SCH ×6 (02:49→22:35)
[2016-08-29] MEDS: ALBUTEROL SULF 2.5 MG/0.5ML(0.5%) NEB SOLN NEB SCH ×6 (02:49→22:36)
[2016-08-29 04:06] LABS: Basophils # (auto) 0 uL; CONDITION Y; DEFINITIVE SEE PRINTOUT; Eosinophils # (auto) 0 uL; Hematocrit 42.2 % (41.0-53.0); Hemoglobin 13.2 g/dL (13.5-17.5); Lymphocytes # (auto) 0.3 uL; Lymphocytes % (auto) 4.1 % (10.0-50.0); Mean Corpuscular Hemoglobin 26.9 pg (28.0-32.0); Mean Corpuscular Hgb Conc. 31.2 g/dL (32.0-36.0); Mean Corpuscular Volume 86.2 fL (80.0-100.0); Mean Platelet Volume 9.7 fL (7.4-10.4); Monocytes # (auto) 0.3 uL; Monocytes % (auto) 3.9 % (0.0-12.0); Platelet Count (auto) 156 10^3/uL (140-450); White Blood Cell 7.6 10^3/uL (4.4-10.8)
[2016-08-29 04:19] LABS: Red Cell Distribution Width 20.3 % (11.6-16.0)
[2016-08-29 04:29] LABS: Albumin 2.9 g/dL (3.4-5.0); Potassium 3.4 mmol/L (3.5-5.1)
[2016-08-29 04:33] LABS: Bilirubin, Total 0.4 mg/dL (0.2-1.0); Total Protein 6.4 g/dL (6.4-8.2)
[2016-08-29] MEDS: methylPREDNISolone SOD SUCC 125 MG/2 ML VL IV SCH ×3 (06:25→11:45)
[2016-08-29] MEDS: InsuLIN REG 1unit/0.01ml Soln (100units/ml) SC SCH ×4 (06:25→17:36)
[2016-08-29] MEDS: ACCU-CHEK COMFORT CURVE STRIP VI SCH ×4 (06:25→17:36)
[2016-08-29 07:21] LABS: Platelet Estimate Adequate
[2016-08-29 07:22] LABS: Anisocytosis Slight; Hypochromia Slight; Ovalocytes FEW
[2016-08-29 08:28] LABS: B-Type Natriuretic Peptide 91.07 pg/mL (0-100)
[2016-08-29 08:33] LABS: Temperature: 24.6 C (20.0-25.0)
[2016-08-29] MEDS: FUROSEMIDE 40 MG TAB PO SCH (09:16)
[2016-08-29] MEDS: DIGOXIN 0.125 MG TAB PO SCH (09:16)
[2016-08-29] MEDS: PANTOPRAZOLE SODIUM 40 MG/10 ML VIAL IV SCH (09:17)
[2016-08-29] MEDS: PROPOFOL 100 ML IV SCH ×3 (09:17→21:23)
[2016-08-29] MEDS: ENOXAPARIN SOD 150 MG/1 ML SYRINGE SC SCH ×2 (09:17→22:00)
[2016-08-29] MEDS: CARVEDILOL 3.125 MG TAB PO SCH ×2 (09:17→22:00)
[2016-08-29] MEDS: BUDESONIDE (INHALATION) 0.5 MG/2 ML NEB NEB SCH ×2 (10:14→18:53)
[2016-08-29] MEDS: DOXYCYCLINE HYC 100MG/250ML 250 ML IV SCH ×2 (11:44→23:15)
[2016-08-29] MEDS: LABETALOL HCL 5 MG/ML 4ML SYRINGE IV PRN (11:48)
[2016-08-29] MEDS: MIDAZOLAM DRIP 50 mg/50mL 50 ML IV SCH (13:19)
[2016-08-29] MEDS ORDERED: hydrALAZINE HCL 25 MG TAB PO PRN (13:30)
[2016-08-29] MEDS ORDERED: Nutren Pulmonary 1 Liter GT SCH (15:30)
[2016-08-29 15:40] LABS: Allen Test Modified; Base Excess 8.3 mmol/L (-2.0-2.0); Blood 02Sat 93.1 % (96-100); Blood COHb 1.1 % (0.5-1.5); Blood MetHb 0.3 % (0.0-1.5); HCO3 32.8 mmol/L (22-26.0); HHb 6.8 % (0.0-5.0); MODE VENT - A/C; O2Hb 91.8 % (94.0-97.0); PCO2 44.5 mmHg (35.0-45.0); PCO2(T) 44.5 mmHg (35.0-45.0); PO2 72.2 mmHg (80.0-100.0); PO2(T) 72.2 mmHg (80.0-100.0); Sample Type Arterial; pH 7.485 (7.350-7.450)
[2016-08-29 16:17] LABS: Magnesium 2.8 mg/dL (1.6-2.6); Phosphorus 2.3 mg/dL (2.5-4.90)
[2016-08-29] MEDS: methylPREDNISolone SOD SUCC 40 MG/ML VL IV SCH (17:18)
[2016-08-29] MEDS: fentaNYL Drip 2500mCg/250mlNS 250 ML IV SCH (17:36)
[2016-08-29] MEDS: NOREPINEPHRINE BITARTRATE 250 ML IV SCH (17:36)
[2016-08-30] VITALS (105 sets, daily range): BP systolic 87–150; BP diastolic 46–98
[2016-08-30] MEDS: ACCU-CHEK COMFORT CURVE STRIP VI SCH ×5 (00:15→23:26)
[2016-08-30] MEDS: InsuLIN REG 1unit/0.01ml Soln (100units/ml) SC SCH ×5 (00:30→23:26)
[2016-08-30] MEDS: methylPREDNISolone SOD SUCC 40 MG/ML VL IV SCH ×5 (00:30→23:26)
[2016-08-30] MEDS: IPRATROPIUM BROM 0.5 MG/2.5ML INH SOL NEB SCH ×6 (02:23→22:06)
[2016-08-30] MEDS: ALBUTEROL SULF 2.5 MG/0.5ML(0.5%) NEB SOLN NEB SCH ×6 (02:23→22:06)
[2016-08-30] MEDS: PROPOFOL 100 ML IV SCH ×2 (04:19→12:53)
[2016-08-30 08:11] LABS: Allen Test Yes; Base Excess 4.9 mmol/L (-2.0-2.0); Blood 02Sat 94.1 % (96-100); Blood COHb 1.5 % (0.5-1.5); Blood MetHb 0.2 % (0.0-1.5); HHb 5.8 % (0.0-5.0); MODE VENT - A/C; O2Hb 92.5 % (94.0-97.0); PCO2 40.9 mmHg (35.0-45.0); PCO2(T) 40.9 mmHg (35.0-45.0); PO2 75.6 mmHg (80.0-100.0); PO2(T) 75.6 mmHg (80.0-100.0); Sample Type Arterial; pH 7.468 (7.350-7.450)
[2016-08-30] MEDS: PANTOPRAZOLE SODIUM 40 MG/10 ML VIAL IV SCH (09:18)
[2016-08-30] MEDS: ENOXAPARIN SOD 150 MG/1 ML SYRINGE SC SCH ×2 (09:19→21:29)
[2016-08-30] MEDS: FUROSEMIDE 40 MG TAB PO SCH (09:19)
[2016-08-30] MEDS: CARVEDILOL 3.125 MG TAB PO SCH ×2 (09:20→21:28)
[2016-08-30] MEDS: DIGOXIN 0.125 MG TAB PO SCH (09:20)
[2016-08-30] MEDS: BUDESONIDE (INHALATION) 0.5 MG/2 ML NEB NEB SCH ×2 (10:09→22:06)
[2016-08-30] MEDS: DOXYCYCLINE HYC 100MG/250ML 250 ML IV SCH ×2 (11:06→23:20)
[2016-08-30] MEDS ORDERED: Nutren Pulmonary 1 Liter GT SCH (13:00)
[2016-08-30] MEDS: MIDAZOLAM DRIP 50 mg/50mL 50 ML IV SCH (13:19)
[2016-08-30 14:41] LABS: Allen Test Yes; Blood 02Sat 95.9 % (96-100); Blood COHb 1.5 % (0.5-1.5); Blood MetHb 0.4 % (0.0-1.5); HCO3 33.9 mmol/L (22-26.0); MODE VENT - A/C; O2Hb 94.1 % (94.0-97.0); PCO2 51.7 mmHg (35.0-45.0); PCO2(T) 51.7 mmHg (35.0-45.0); PO2 89.8 mmHg (80.0-100.0); PO2(T) 89.8 mmHg (80.0-100.0); Sample Type Arterial; pH 7.435 (7.350-7.450)
[2016-08-30 17:28] LABS: Basophils # (auto) 0 uL; Basophils % (auto) 0.1 % (0.0-2.0); CONDITION Y; DEFINITIVE SEE PRINTOUT; Eosinophils # (auto) 0 uL; Hematocrit 46.6 % (41.0-53.0); Hemoglobin 14.8 g/dL (13.5-17.5); Lymphocytes # (auto) 0.3 uL; Lymphocytes % (auto) 2.9 % (10.0-50.0); Mean Corpuscular Hemoglobin 27.1 pg (28.0-32.0); Mean Corpuscular Hgb Conc. 31.9 g/dL (32.0-36.0); Mean Corpuscular Volume 85.2 fL (80.0-100.0); Mean Platelet Volume 9.4 fL (7.4-10.4); Monocytes # (auto) 0.4 uL; Monocytes % (auto) 3.5 % (0.0-12.0); Neutrophils # (auto) 11.2 uL; Neutrophils % (auto) 93.5 % (37.0-80.0); Platelet Count (auto) 171 10^3/uL (140-450); Red Cell Distribution Width 19.5 % (11.6-16.0); White Blood Cell 11.9 10^3/uL (4.4-10.8)
[2016-08-30] MEDS: NOREPINEPHRINE BITARTRATE 250 ML IV SCH ×2 (17:42→21:21)
[2016-08-30] MEDS: fentaNYL Drip 2500mCg/250mlNS 250 ML IV SCH (17:42)
[2016-08-30 18:07] LABS: Potassium 3.4 mmol/L (3.5-5.1)
[2016-08-30 18:08] LABS: BUN/Creatinine Ratio 47.9
[2016-08-30 18:09] LABS: Albumin 3.1 g/dL (3.4-5.0); Bilirubin, Total 0.6 mg/dL (0.2-1.0); Calcium 8.5 mg/dL (8.5-10.1); Total Protein 6.6 g/dL (6.4-8.2)
[2016-08-30 18:10] LABS: Anisocytosis Slight; Giant Platelets Few; Platelet Estimate Adequate
[2016-08-31] VITALS (99 sets, daily range): BP systolic 85–127; BP diastolic 45–88
[2016-08-31] MEDS: CARVEDILOL 3.125 MG TAB PO SCH ×2 (00:38→21:55)
[2016-08-31] MEDS: ALBUTEROL SULF 2.5 MG/0.5ML(0.5%) NEB SOLN NEB SCH ×6 (02:09→22:28)
[2016-08-31] MEDS: IPRATROPIUM BROM 0.5 MG/2.5ML INH SOL NEB SCH ×6 (02:09→22:28)
[2016-08-31] MEDS: methylPREDNISolone SOD SUCC 40 MG/ML VL IV SCH ×4 (05:26→23:35)
[2016-08-31] MEDS: ACCU-CHEK COMFORT CURVE STRIP VI SCH ×4 (05:26→23:35)
[2016-08-31] MEDS: InsuLIN REG 1unit/0.01ml Soln (100units/ml) SC SCH ×4 (05:30→23:36)
[2016-08-31] MEDS: BUDESONIDE (INHALATION) 0.5 MG/2 ML NEB NEB SCH ×2 (06:08→22:28)
[2016-08-31 07:57] LABS: Allen Test Yes; Base Excess 5.6 mmol/L (-2.0-2.0); Blood 02Sat 95.3 % (96-100); Blood COHb 0.8 % (0.5-1.5); Blood MetHb 0.4 % (0.0-1.5); HCO3 31.6 mmol/L (22-26.0); HHb 4.6 % (0.0-5.0); MODE VENT - A/C; O2Hb 94.2 % (94.0-97.0); PCO2 50.6 mmHg (35.0-45.0); PCO2(T) 50.6 mmHg (35.0-45.0); PO2 87.5 mmHg (80.0-100.0); PO2(T) 87.5 mmHg (80.0-100.0); Sample Type Arterial; pH 7.414 (7.350-7.450)
[2016-08-31] MEDS: PANTOPRAZOLE SODIUM 40 MG/10 ML VIAL IV SCH (09:09)
[2016-08-31] MEDS: DIGOXIN 0.125 MG TAB PO SCH (09:10)
[2016-08-31] MEDS: ENOXAPARIN SOD 150 MG/1 ML SYRINGE SC SCH ×2 (09:11→21:55)
[2016-08-31] MEDS: FUROSEMIDE 40 MG TAB PO SCH (09:11)
[2016-08-31] MEDS: DOXYCYCLINE HYC 100MG/250ML 250 ML IV SCH ×2 (10:57→22:51)
[2016-08-31 11:46] LABS: Allen Test Yes; Base Excess 7.5 mmol/L (-2.0-2.0); Blood 02Sat 92.2 % (96-100); Blood COHb 1.2 % (0.5-1.5); Blood MetHb 0.4 % (0.0-1.5); HCO3 32.7 mmol/L (22-26.0); HHb 7.7 % (0.0-5.0); MODE VENT - CPAP; O2Hb 90.7 % (94.0-97.0); PCO2 47.5 mmHg (35.0-45.0); PCO2(T) 47.5 mmHg (35.0-45.0); PO2 69.8 mmHg (80.0-100.0); PO2(T) 69.8 mmHg (80.0-100.0); Pressure Support 8; Sample Type Arterial; pH 7.456 (7.350-7.450)
[2016-08-31] MEDS: PROPOFOL 100 ML IV SCH (13:19)
[2016-08-31] MEDS: MIDAZOLAM DRIP 50 mg/50mL 50 ML IV SCH (13:19)
[2016-08-31] MEDS: LABETALOL HCL 5 MG/ML 4ML SYRINGE IV PRN ×2 (16:09→18:54)
[2016-08-31] MEDS ORDERED: DIGOXIN (250MCG/ML) 2 ML AMPULE IV ONE (16:45)
[2016-08-31] MEDS: fentaNYL Drip 2500mCg/250mlNS 250 ML IV SCH (17:42)
[2016-09-01] VITALS (86 sets, daily range): BP systolic 72–162; BP diastolic 36–109
[2016-09-01] MEDS: ALBUTEROL SULF 2.5 MG/0.5ML(0.5%) NEB SOLN NEB SCH ×6 (03:03→22:00)
[2016-09-01] MEDS: IPRATROPIUM BROM 0.5 MG/2.5ML INH SOL NEB SCH ×6 (03:03→22:00)
[2016-09-01 04:30] LABS: BUN/Creatinine Ratio 49.3; Bilirubin, Total 0.9 mg/dL (0.2-1.0); Calcium 8.5 mg/dL (8.5-10.1); Potassium 3.9 mmol/L (3.5-5.1); Total Protein 6.2 g/dL (6.4-8.2)
[2016-09-01] MEDS: methylPREDNISolone SOD SUCC 40 MG/ML VL IV SCH ×3 (05:31→20:50)
[2016-09-01] MEDS: ACCU-CHEK COMFORT CURVE STRIP VI SCH ×3 (05:32→18:00)
[2016-09-01] MEDS: InsuLIN REG 1unit/0.01ml Soln (100units/ml) SC SCH ×3 (06:18→18:00)
[2016-09-01] MEDS: BUDESONIDE (INHALATION) 0.5 MG/2 ML NEB NEB SCH ×2 (06:27→19:12)
[2016-09-01] MEDS ORDERED: EPINEPHrine HCL 0.5 ML NEB ONE (09:50)
[2016-09-01] MEDS: PANTOPRAZOLE SODIUM 40 MG/10 ML VIAL IV SCH (10:07)
[2016-09-01] MEDS: CARVEDILOL 3.125 MG TAB PO SCH ×2 (10:08→22:00)
[2016-09-01] MEDS: DIGOXIN 0.125 MG TAB PO SCH (10:08)
[2016-09-01] MEDS: ENOXAPARIN SOD 150 MG/1 ML SYRINGE SC SCH ×2 (10:08→22:00)
[2016-09-01] MEDS: FUROSEMIDE 40 MG TAB PO SCH (10:08)
[2016-09-01] MEDS: METOPROLOL TARTRATE 1MG/1ML-5ML VIAL IV SCH ×2 (10:21→11:48)
[2016-09-01 11:11] LABS: Allen Test Yes; Base Excess 8.1 mmol/L (-2.0-2.0); Blood 02Sat 94.5 % (96-100); Blood COHb 1.3 % (0.5-1.5); Blood MetHb 0.3 % (0.0-1.5); HCO3 32.2 mmol/L (22-26.0); HHb 5.4 % (0.0-5.0); MODE NASAL CANNULA; PCO2 42.2 mmHg (35.0-45.0); PCO2(T) 42.2 mmHg (35.0-45.0); PO2 75.9 mmHg (80.0-100.0); PO2(T) 75.9 mmHg (80.0-100.0); Sample Type Arterial
[2016-09-01] MEDS: DOXYCYCLINE HYC 100MG/250ML 250 ML IV SCH ×2 (11:49→23:15)
[2016-09-01] MEDS ORDERED: METOPROLOL SUCCINATE XL 50 MG TAB PO ONE (13:00)
[2016-09-01 14:10] LABS: INR 1.07 (0.9-1.15); Prothrombin Time 11.7 sec (9.37-12.3)
[2016-09-01] MEDS ORDERED: FUROSEMIDE 20 MG/2 ML VIAL IV ONE (16:45)
[2016-09-01] MEDS ORDERED: ETOMIDATE (2MG/ML) 20ML VIAL IV ONE (17:19)
[2016-09-01] MEDS ORDERED: SUCCINYLCHOLINE CHLORIDE 20 MG/ML 10ML VIAL IV ONE (17:19)
[2016-09-01] MEDS: PROPOFOL 100 ML IV SCH (17:30)
[2016-09-01] MEDS: fentaNYL Drip 2500mCg/250mlNS 250 ML IV SCH (17:42)
[2016-09-01 19:11] LABS: Allen Test Yes; Base Excess 4.3 mmol/L (-2.0-2.0); Blood 02Sat 89.4 % (96-100); Blood COHb 0.6 % (0.5-1.5); Blood MetHb 0.4 % (0.0-1.5); HCO3 27.9 mmol/L (22-26.0); HHb 10.5 % (0.0-5.0); MODE VENT - A/C; O2Hb 88.5 % (94.0-97.0); PO2 58.5 mmHg (80.0-100.0); PO2(T) 58.5 mmHg (80.0-100.0); Sample Type Arterial; pH 7.483 (7.350-7.450)
[2016-09-01] MEDS: MIDAZOLAM DRIP 50 mg/50mL 50 ML IV SCH (20:15)
[2016-09-01] MEDS: POTASSIUM CHL 20MEQ/100ML 100 ML IV SCH ×2 (20:50→23:25)
[2016-09-01] MEDS: METOPROLOL SUCCINATE XL 50 MG TAB PO SCH (22:00)
[2016-09-01] MEDS: NOREPINEPHRINE BITARTRATE 250 ML IV SCH (22:00)
[2016-09-01] MEDS ORDERED: NOREPINEPHRINE BITARTRATE 1 ML IV ONE (22:04)
[2016-09-01] MEDS ORDERED: POTASSIUM CHL 20MEQ/100ML 100 ML IV ONE (23:06)
[2016-09-02] VITALS (92 sets, daily range): BP systolic 87–158; BP diastolic 53–104
[2016-09-02] MEDS: ALBUTEROL SULF 2.5 MG/0.5ML(0.5%) NEB SOLN NEB SCH ×6 (02:00→22:34)
[2016-09-02] MEDS: IPRATROPIUM BROM 0.5 MG/2.5ML INH SOL NEB SCH ×6 (02:00→22:34)
[2016-09-02 04:27] LABS: CONDITION Y; Hematocrit 47.9 % (41.0-53.0); Hemoglobin 15.1 g/dL (13.5-17.5); Mean Corpuscular Hemoglobin 27.5 pg (28.0-32.0); Mean Corpuscular Hgb Conc. 31.4 g/dL (32.0-36.0); Mean Corpuscular Volume 87.7 fL (80.0-100.0); Mean Platelet Volume 11.3 fL (7.4-10.4); Platelet Count (auto) 162 10^3/uL (140-450); Red Cell Distribution Width 18.6 % (11.6-16.0); SUSPECT SEE PRINTOUT; White Blood Cell 25.3 10^3/uL (4.4-10.8)
[2016-09-02 04:44] LABS: Calcium 8.5 mg/dL (8.5-10.1)
[2016-09-02 04:46] LABS: BUN/Creatinine Ratio 46.5
[2016-09-02 04:49] LABS: Myelocytes % 0; Promyelocytes % 0; Reactive Lymphocytes 0
[2016-09-02 04:53] LABS: Magnesium 2.5 mg/dL (1.6-2.6); Potassium 5.3 mmol/L (3.5-5.1)
[2016-09-02 05:05] LABS: Hypersegmented Neutrophils Present; Metamyelocytes % 1; Platelet Estimate Adequate
[2016-09-02 05:06] LABS: Anisocytosis Slight; Ovalocytes FEW
[2016-09-02] MEDS: ACCU-CHEK COMFORT CURVE STRIP VI SCH ×4 (05:35→18:15)
[2016-09-02] MEDS: methylPREDNISolone SOD SUCC 40 MG/ML VL IV SCH ×4 (06:00→18:27)
[2016-09-02] MEDS: InsuLIN REG 1unit/0.01ml Soln (100units/ml) SC SCH ×4 (06:00→18:26)
[2016-09-02] MEDS: ACETAMINOPHEN 500 MG TAB PO PRN ×2 (09:03→22:44)
[2016-09-02 09:19] LABS: Allen Test Yes; Base Excess 8.1 mmol/L (-2.0-2.0); Blood 02Sat 93.8 % (96-100); Blood COHb 1.1 % (0.5-1.5); Blood MetHb 0.3 % (0.0-1.5); HCO3 33.1 mmol/L (22-26.0); HHb 6.1 % (0.0-5.0); MODE VENT - A/C; O2Hb 92.5 % (94.0-97.0); PCO2 46.5 mmHg (35.0-45.0); PCO2(T) 49.7 mmHg (35.0-45.0); PO2(T) 81.8 mmHg (80.0-100.0); Sample Type Arterial
[2016-09-02] MEDS: FUROSEMIDE 40 MG TAB PO SCH (10:00)
[2016-09-02] MEDS: METOPROLOL SUCCINATE XL 50 MG TAB PO SCH ×2 (10:00→22:43)
[2016-09-02] MEDS: CARVEDILOL 3.125 MG TAB PO SCH ×2 (10:00→21:28)
[2016-09-02] MEDS: ENOXAPARIN SOD 150 MG/1 ML SYRINGE SC SCH ×2 (10:00→21:28)
[2016-09-02 10:05] LABS: INR 1.09 (0.9-1.15); Partial Thromboplastin Time 31.2 sec (22.64-33.71); Prothrombin Time 11.9 sec (9.37-12.3)
[2016-09-02] MEDS: PROPOFOL 100 ML IV SCH (10:12)
[2016-09-02] MEDS: PANTOPRAZOLE SODIUM 40 MG/10 ML VIAL IV SCH (10:14)
[2016-09-02] MEDS: DIGOXIN 0.125 MG TAB PO SCH (10:15)
[2016-09-02 10:21] LABS: B-Type Natriuretic Peptide 52.6 pg/mL (0-100)
[2016-09-02 10:22] LABS: Temperature: 24.3 C (20.0-25.0)
[2016-09-02] MEDS ORDERED: VANCOMYCIN PER PHARMACY 0 MG IV SCH (10:30)
[2016-09-02] MEDS: BUDESONIDE (INHALATION) 0.5 MG/2 ML NEB NEB SCH ×2 (10:55→22:34)
[2016-09-02] MEDS: PIPERACILLIN-TAZOB 3.375GM 100 ML IV SCH ×2 (12:00→18:28)
[2016-09-02] MEDS: MIDAZOLAM DRIP 50 mg/50mL 50 ML IV SCH (13:19)
[2016-09-02] MEDS ORDERED: Nutren Pulmonary 1 Liter GT SCH (13:30)
[2016-09-02 14:37] LABS: Basophils # (auto) 0 uL; CONDITION Y; Eosinophils # (auto) 0 uL; Eosinophils % (auto) 0.2 % (0.0-7.0); Hematocrit 47.5 % (41.0-53.0); Hemoglobin 15.1 g/dL (13.5-17.5); Lymphocytes # (auto) 0.7 uL; Lymphocytes % (auto) 5.7 % (10.0-50.0); Mean Corpuscular Hemoglobin 27.5 pg (28.0-32.0); Mean Corpuscular Hgb Conc. 31.8 g/dL (32.0-36.0); Mean Corpuscular Volume 86.5 fL (80.0-100.0); Mean Platelet Volume 10.7 fL (7.4-10.4); Monocytes # (auto) 0.6 uL; Monocytes % (auto) 4.7 % (0.0-12.0); Neutrophils % (auto) 89.4 % (37.0-80.0); Platelet Count (auto) 116 10^3/uL (140-450); Red Cell Distribution Width 18.5 % (11.6-16.0); White Blood Cell 12.3 10^3/uL (4.4-10.8)
[2016-09-02] MEDS: VANCOMYCIN 1,500 MG in D5W 5% 250 ML IV SCH (15:16)
[2016-09-02] MEDS: fentaNYL Drip 2500mCg/250mlNS 250 ML IV SCH (17:42)
[2016-09-02] MEDS: NOREPINEPHRINE BITARTRATE 250 ML IV SCH (17:42)
[2016-09-02] MEDS: FREE WATER GT SCH (18:28)
[2016-09-02] MEDS ORDERED: cefTRIAXone 1GM/50ML D5W 50 ML IV ONE (22:57)
[2016-09-03] VITALS (89 sets, daily range): BP systolic 75–137; BP diastolic 33–102
[2016-09-03] MEDS: ACCU-CHEK COMFORT CURVE STRIP VI SCH ×4 (00:24→17:57)
[2016-09-03] MEDS: FREE WATER GT SCH ×5 (00:25→23:34)
[2016-09-03] MEDS: MIDAZOLAM DRIP 50 mg/50mL 50 ML IV SCH ×3 (00:45→20:00)
[2016-09-03] MEDS: ALBUTEROL SULF 2.5 MG/0.5ML(0.5%) NEB SOLN NEB SCH ×6 (02:06→22:07)
[2016-09-03] MEDS: IPRATROPIUM BROM 0.5 MG/2.5ML INH SOL NEB SCH ×6 (02:06→22:07)
[2016-09-03] MEDS: VANCOMYCIN 1,500 MG in D5W 5% 250 ML IV SCH ×2 (02:36→16:30)
[2016-09-03 04:33] LABS: Albumin 2.3 g/dL (3.4-5.0); BUN/Creatinine Ratio 67.8; Bilirubin, Total 0.8 mg/dL (0.2-1.0); Calcium 8.3 mg/dL (8.5-10.1); Potassium 4.9 mmol/L (3.5-5.1); Total Protein 6.1 g/dL (6.4-8.2)
[2016-09-03] MEDS: PIPERACILLIN-TAZOB 3.375GM 100 ML IV SCH ×5 (05:48→23:34)
[2016-09-03] MEDS: methylPREDNISolone SOD SUCC 40 MG/ML VL IV SCH ×5 (05:48→23:33)
[2016-09-03] MEDS: InsuLIN REG 1unit/0.01ml Soln (100units/ml) SC SCH ×4 (05:49→17:57)
[2016-09-03 08:15] LABS: Allen Test Modified; Base Excess 3.1 mmol/L (-2.0-2.0); Blood 02Sat 94.1 % (96-100); Blood COHb 1.2 % (0.5-1.5); Blood MetHb 0.1 % (0.0-1.5); HCO3 27.8 mmol/L (22-26.0); HHb 5.8 % (0.0-5.0); MODE VENT - A/C; O2Hb 92.9 % (94.0-97.0); PCO2 42.8 mmHg (35.0-45.0); PCO2(T) 42.8 mmHg (35.0-45.0); PO2 76.1 mmHg (80.0-100.0); PO2(T) 76.1 mmHg (80.0-100.0); Sample Type Arterial
[2016-09-03] MEDS: BUDESONIDE (INHALATION) 0.5 MG/2 ML NEB NEB SCH ×2 (10:18→19:17)
[2016-09-03] MEDS: DIGOXIN 0.125 MG TAB PO SCH (11:05)
[2016-09-03] MEDS: FUROSEMIDE 40 MG TAB PO SCH (11:05)
[2016-09-03] MEDS: ENOXAPARIN SOD 150 MG/1 ML SYRINGE SC SCH ×2 (11:05→22:00)
[2016-09-03] MEDS: PANTOPRAZOLE SODIUM 40 MG/10 ML VIAL IV SCH (11:05)
[2016-09-03] MEDS: CARVEDILOL 3.125 MG TAB PO SCH ×2 (11:06→22:00)
[2016-09-03] MEDS: METOPROLOL SUCCINATE XL 50 MG TAB PO SCH ×2 (11:06→22:00)
[2016-09-03] MEDS: NOREPINEPHRINE BITARTRATE 250 ML IV SCH (12:00)
[2016-09-03] MEDS: PROPOFOL 100 ML IV SCH (13:19)
[2016-09-03] MEDS: fentaNYL Drip 2500mCg/250mlNS 250 ML IV SCH (17:42)
[2016-09-03] MEDS ORDERED: LIDOCAINE 1% HCL (LOCAL ANESTH.) INJ 20ML MDV ID ONE (19:15)
[2016-09-03] MEDS: SODIUM CHLOR 0.9% PF (SALINE LOCK) 10ML VIAL IV SCH (22:00)
[2016-09-03] MEDS: cefTRIAXone 1GM/50ML D5W 50 ML IV SCH ×2 (23:34)
[2016-09-04] VITALS (99 sets, daily range): BP systolic 78–149; BP diastolic 46–101
[2016-09-04] MEDS: InsuLIN REG 1unit/0.01ml Soln (100units/ml) SC SCH ×4 (00:04→18:40)
[2016-09-04] MEDS: ACCU-CHEK COMFORT CURVE STRIP VI SCH ×5 (00:04→23:48)
[2016-09-04] MEDS: IPRATROPIUM BROM 0.5 MG/2.5ML INH SOL NEB SCH ×6 (02:21→22:09)
[2016-09-04] MEDS: ALBUTEROL SULF 2.5 MG/0.5ML(0.5%) NEB SOLN NEB SCH ×6 (02:21→22:09)
[2016-09-04] MEDS: MIDAZOLAM DRIP 50 mg/50mL 50 ML IV SCH (03:35)
[2016-09-04] MEDS: VANCOMYCIN 1,500 MG in D5W 5% 250 ML IV SCH ×2 (03:39→15:45)
[2016-09-04 04:12] LABS: CONDITION Y; Hematocrit 39.4 % (41.0-53.0); Hemoglobin 12.7 g/dL (13.5-17.5); Mean Corpuscular Hemoglobin 27.7 pg (28.0-32.0); Mean Corpuscular Hgb Conc. 32.3 g/dL (32.0-36.0); Mean Corpuscular Volume 85.7 fL (80.0-100.0); Mean Platelet Volume 11.3 fL (7.4-10.4); Platelet Count (auto) 156 10^3/uL (140-450); Red Cell Distribution Width 18.5 % (11.6-16.0); SUSPECT SEE PRINTOUT; White Blood Cell 11.6 10^3/uL (4.4-10.8)
[2016-09-04 04:21] LABS: Metamyelocytes % 0; Myelocytes % 0; Promyelocytes % 0; Reactive Lymphocytes 0
[2016-09-04 04:29] LABS: Albumin 2.4 g/dL (3.4-5.0); BUN/Creatinine Ratio 60.3; Potassium 4.3 mmol/L (3.5-5.1)
[2016-09-04 04:32] LABS: Bilirubin, Total 0.6 mg/dL (0.2-1.0); Total Protein 5.5 g/dL (6.4-8.2)
[2016-09-04 05:11] LABS: Giant Platelets Few; Platelet Estimate Adequate
[2016-09-04 05:12] LABS: Anisocytosis Slight
[2016-09-04] MEDS: FREE WATER GT SCH ×4 (05:39→23:48)
[2016-09-04] MEDS: methylPREDNISolone SOD SUCC 40 MG/ML VL IV SCH ×4 (05:39→23:48)
[2016-09-04] MEDS: PIPERACILLIN-TAZOB 3.375GM 100 ML IV SCH ×4 (05:45→23:47)
[2016-09-04] MEDS: BUDESONIDE (INHALATION) 0.5 MG/2 ML NEB NEB SCH ×2 (06:44→22:10)
[2016-09-04 08:17] LABS: Allen Test Modified; Base Excess 6.2 mmol/L (-2.0-2.0); Blood 02Sat 93.5 % (96-100); Blood COHb 0.9 % (0.5-1.5); Blood MetHb 0.3 % (0.0-1.5); HCO3 30.1 mmol/L (22-26.0); HHb 6.4 % (0.0-5.0); MODE VENT - A/C; O2Hb 92.4 % (94.0-97.0); PCO2 40.8 mmHg (35.0-45.0); PCO2(T) 40.8 mmHg (35.0-45.0); PIP 18; PO2 74.8 mmHg (80.0-100.0); PO2(T) 74.8 mmHg (80.0-100.0); Sample Type Arterial; pH 7.486 (7.350-7.450)
[2016-09-04] MEDS: CARVEDILOL 3.125 MG TAB PO SCH ×2 (10:00→21:58)
[2016-09-04] MEDS: ENOXAPARIN SOD 150 MG/1 ML SYRINGE SC SCH ×2 (10:00→21:59)
[2016-09-04] MEDS: METOPROLOL SUCCINATE XL 50 MG TAB PO SCH ×2 (10:00→21:59)
[2016-09-04] MEDS: SODIUM CHLOR 0.9% PF (SALINE LOCK) 10ML VIAL IV SCH ×2 (10:21→22:00)
[2016-09-04] MEDS: PANTOPRAZOLE SODIUM 40 MG/10 ML VIAL IV SCH (10:21)
[2016-09-04] MEDS: FUROSEMIDE 40 MG TAB PO SCH (10:22)
[2016-09-04] MEDS: DIGOXIN 0.125 MG TAB PO SCH (10:22)
[2016-09-04] MEDS ORDERED: NOREPINEPHRINE BITARTRATE 1 ML IV ONE (11:49)
[2016-09-04] MEDS: PROPOFOL 100 ML IV SCH (13:19)
[2016-09-04] MEDS: fentaNYL Drip 2500mCg/250mlNS 250 ML IV SCH (17:42)
[2016-09-04] MEDS: NOREPINEPHRINE BITARTRATE 250 ML IV SCH (17:42)
[2016-09-05] VITALS (100 sets, daily range): BP systolic 78–157; BP diastolic 28–99
[2016-09-05] MEDS: InsuLIN REG 1unit/0.01ml Soln (100units/ml) SC SCH ×5 (00:06→23:46)
[2016-09-05] MEDS: ALBUTEROL SULF 2.5 MG/0.5ML(0.5%) NEB SOLN NEB SCH ×6 (02:17→22:15)
[2016-09-05] MEDS: IPRATROPIUM BROM 0.5 MG/2.5ML INH SOL NEB SCH ×6 (02:17→22:15)
[2016-09-05] MEDS: VANCOMYCIN 1,500 MG in D5W 5% 250 ML IV SCH ×2 (03:13→17:05)
[2016-09-05] MEDS: PIPERACILLIN-TAZOB 3.375GM 100 ML IV SCH ×2 (05:45→11:49)
[2016-09-05] MEDS: FREE WATER GT SCH ×4 (05:45→23:46)
[2016-09-05] MEDS: ACCU-CHEK COMFORT CURVE STRIP VI SCH ×4 (05:45→23:46)
[2016-09-05] MEDS: methylPREDNISolone SOD SUCC 40 MG/ML VL IV SCH ×3 (05:45→20:06)
[2016-09-05] MEDS ORDERED: Diabetisource AC 1 Liter GT SCH (08:15)
[2016-09-05 08:29] LABS: CONDITION Y; Hematocrit 40.3 % (41.0-53.0); Hemoglobin 13.1 g/dL (13.5-17.5); Mean Corpuscular Hemoglobin 27.3 pg (28.0-32.0); Mean Corpuscular Hgb Conc. 32.5 g/dL (32.0-36.0); Mean Platelet Volume 11.1 fL (7.4-10.4); Platelet Count (auto) 253 10^3/uL (140-450); Red Cell Distribution Width 18.8 % (11.6-16.0); SUSPECT SEE PRINTOUT; White Blood Cell 20.1 10^3/uL (4.4-10.8)
[2016-09-05 08:32] LABS: Metamyelocytes % 0; Myelocytes % 0; Promyelocytes % 0; Reactive Lymphocytes 0
[2016-09-05 08:47] LABS: BUN/Creatinine Ratio 58.1; Calcium 8.1 mg/dL (8.5-10.1); Potassium 4.5 mmol/L (3.5-5.1)
[2016-09-05 09:29] LABS: Allen Test Yes; Base Excess 6.6 mmol/L (-2.0-2.0); Blood 02Sat 93.3 % (96-100); Blood COHb 0.6 % (0.5-1.5); Blood MetHb 0.2 % (0.0-1.5); HCO3 30.7 mmol/L (22-26.0); HHb 6.6 % (0.0-5.0); MODE VENT - A/C; O2Hb 92.6 % (94.0-97.0); PCO2 42.2 mmHg (35.0-45.0); PCO2(T) 42.2 mmHg (35.0-45.0); PO2 74.6 mmHg (80.0-100.0); PO2(T) 74.6 mmHg (80.0-100.0); Sample Type Arterial
[2016-09-05] MEDS: BUDESONIDE (INHALATION) 0.5 MG/2 ML NEB NEB SCH ×2 (10:17→18:26)
[2016-09-05 10:48] LABS: Ovalocytes FEW; Platelet Estimate Adequate
[2016-09-05 10:49] LABS: Anisocytosis Slight
[2016-09-05] MEDS: FUROSEMIDE 40 MG TAB PO SCH (11:00)
[2016-09-05] MEDS: SODIUM CHLOR 0.9% PF (SALINE LOCK) 10ML VIAL IV SCH ×2 (11:01→21:57)
[2016-09-05] MEDS: CARVEDILOL 3.125 MG TAB PO SCH (11:01)
[2016-09-05] MEDS: DIGOXIN 0.125 MG TAB PO SCH (11:01)
[2016-09-05] MEDS: METOPROLOL SUCCINATE XL 50 MG TAB PO SCH (11:06)
[2016-09-05] MEDS: ENOXAPARIN SOD 150 MG/1 ML SYRINGE SC SCH ×2 (11:06→21:39)
[2016-09-05] MEDS: PRO-STAT 64 30ML GT SCH ×2 (11:06→21:57)
[2016-09-05] MEDS: PANTOPRAZOLE SODIUM 40 MG/10 ML VIAL IV SCH (11:06)
[2016-09-05] MEDS ORDERED: LACTULOSE 20Gm/30ML SOLN PO PRN (13:45)
[2016-09-05] MEDS ORDERED: LORazepam 0.5 MG TAB PO PRN (13:45)
[2016-09-05] MEDS ORDERED: ONDANSETRON HCL 4 MG/2 ML VIAL IV PRN (13:45)
[2016-09-05] MEDS ORDERED: NITROGLYCERIN 0.4 MG SL TAB SL PRN (13:45)
[2016-09-05] MEDS ORDERED: ACETAMINOPHEN 500 MG TAB PO PRN (13:45)
[2016-09-05] MEDS ORDERED: TEMAZEPAM 15 MG CAP PO PRN (13:45)
[2016-09-05] MEDS ORDERED: ALBUTEROL SULF 2.5 MG/0.5ML(0.5%) NEB SOLN NEB PRN (13:45)
[2016-09-05] MEDS ORDERED: LORazepam 2MG/ML-1ML VIAL IV PRN (13:45)
[2016-09-05] MEDS: LEVOFLOXACIN 500MG 100 ML IV SCH (14:23)
[2016-09-05] MEDS ORDERED: fentaNYL Drip 2500mCg/250mlNS 250 ML IV SCH (17:42)
[2016-09-05] MEDS: NOREPINEPHRINE BITARTRATE 250 ML IV SCH (17:42)
[2016-09-05] MEDS ORDERED: MIDAZOLAM DRIP 50 mg/50mL 50 ML IV ONE (19:55)
[2016-09-05] MEDS ORDERED: MIDAZOLAM DRIP 50 mg/50mL 50 ML IV SCH (20:04)
[2016-09-06] VITALS (71 sets, daily range): BP systolic 88–170; BP diastolic 49–106
[2016-09-06] MEDS ORDERED: EPINEPHrine HCL 1 MG/10 ML SYRG ONE (02:24)
[2016-09-06] MEDS ORDERED: EPINEPHrine HCL 1 MG/1 ML AMP ONE (02:33)
[2016-09-06] MEDS: IPRATROPIUM BROM 0.5 MG/2.5ML INH SOL NEB SCH ×6 (02:45→22:00)
[2016-09-06] MEDS: ALBUTEROL SULF 2.5 MG/0.5ML(0.5%) NEB SOLN NEB SCH ×6 (02:46→22:00)
[2016-09-06] MEDS: VANCOMYCIN 1,500 MG in D5W 5% 250 ML IV SCH ×2 (03:00→14:55)
[2016-09-06 03:40] LABS: CONDITION Y; Hematocrit 37.6 % (41.0-53.0); Mean Corpuscular Hemoglobin 27.2 pg (28.0-32.0); Mean Platelet Volume 11.1 fL (7.4-10.4); Platelet Count (auto) 214 10^3/uL (140-450); Red Cell Distribution Width 18.5 % (11.6-16.0); SUSPECT SEE PRINTOUT; White Blood Cell 16.3 10^3/uL (4.4-10.8)
[2016-09-06 04:00] LABS: BUN/Creatinine Ratio 52.5; Calcium 7.9 mg/dL (8.5-10.1); Potassium 4.6 mmol/L (3.5-5.1)
[2016-09-06] MEDS: methylPREDNISolone SOD SUCC 40 MG/ML VL IV SCH ×3 (04:00→20:20)
[2016-09-06 04:01] LABS: Myelocytes % 0; Promyelocytes % 0; Reactive Lymphocytes 0
[2016-09-06 04:44] LABS: Metamyelocytes % 2
[2016-09-06 04:45] LABS: Anisocytosis Slight; Hypersegmented Neutrophils Present; Ovalocytes FEW; Platelet Estimate Adequate
[2016-09-06] MEDS ORDERED: EPINEPHrine HCL 1 MG/1 ML AMP SC ONE (05:00)
[2016-09-06] MEDS: FREE WATER GT SCH ×2 (06:00→12:20)
[2016-09-06] MEDS: InsuLIN REG 1unit/0.01ml Soln (100units/ml) SC SCH ×4 (06:09→23:28)
[2016-09-06] MEDS: ACCU-CHEK COMFORT CURVE STRIP VI SCH ×4 (06:09→23:28)
[2016-09-06 07:57] LABS: Allen Test Yes; Base Excess 5.3 mmol/L (-2.0-2.0); Blood 02Sat 95.6 % (96-100); Blood COHb 0.3 % (0.5-1.5); Blood MetHb 0.2 % (0.0-1.5); HCO3 30.8 mmol/L (22-26.0); HHb 4.4 % (0.0-5.0); MODE MASK - BIPAP; O2Hb 95.1 % (94.0-97.0); PO2 89.6 mmHg (80.0-100.0); PO2(T) 89.6 mmHg (80.0-100.0); Sample Type Arterial; pH 7.416 (7.350-7.450)
[2016-09-06] MEDS: SODIUM CHLOR 0.9% PF (SALINE LOCK) 10ML VIAL IV SCH ×2 (10:00→21:54)
[2016-09-06] MEDS: ENOXAPARIN SOD 150 MG/1 ML SYRINGE SC SCH (10:00)
[2016-09-06] MEDS: PANTOPRAZOLE SODIUM 40 MG/10 ML VIAL IV SCH (10:00)
[2016-09-06] MEDS: DIGOXIN 0.125 MG TAB PO SCH (10:00)
[2016-09-06] MEDS: FUROSEMIDE 40 MG TAB PO SCH (10:00)
[2016-09-06] MEDS: PRO-STAT 64 30ML GT SCH ×2 (10:00→21:54)
[2016-09-06] MEDS: LEVOFLOXACIN 500MG 100 ML IV SCH (10:00)
[2016-09-06] MEDS ORDERED: FUROSEMIDE 40 MG/4 ML VIAL ONE ×2 (10:02→13:01)
[2016-09-06] MEDS ORDERED: DIGOXIN (250MCG/ML) 2 ML AMPULE ONE (10:04)
[2016-09-06] MEDS: BUDESONIDE (INHALATION) 0.5 MG/2 ML NEB NEB SCH ×2 (10:17→22:00)
[2016-09-06] MEDS ORDERED: POTASSIUM CHL 20 Meq TABLET PO ONE (13:15)
[2016-09-06] MEDS ORDERED: FUROSEMIDE 40 MG/4 ML VIAL IV ONE (13:15)
[2016-09-06] MEDS ORDERED: MIDAZOLAM DRIP 50 mg/50mL 50 ML IV SCH (13:19)
[2016-09-06] MEDS ORDERED: PROPOFOL 100 ML IV SCH (13:19)
[2016-09-06] MEDS: FUROSEMIDE 40 MG/4 ML VIAL IV SCH (17:43)
[2016-09-06] MEDS: ENOXAPARIN SOD 120 MG/0.8 ML SYRINGE SC SCH (21:53)
[2016-09-06] MEDS: POTASSIUM CHL 20 Meq TABLET PO SCH (22:00)
[2016-09-07] VITALS (72 sets, daily range): BP systolic 89–166; BP diastolic 46–91
[2016-09-07] MEDS: VANCOMYCIN 1,500 MG in D5W 5% 250 ML IV SCH ×2 (03:00→15:57)
[2016-09-07 03:52] LABS: Basophils # (auto) 0 uL; CONDITION Y; Eosinophils # (auto) 0 uL; Hematocrit 35.5 % (41.0-53.0); Hemoglobin 11.3 g/dL (13.5-17.5); Lymphocytes # (auto) 0.3 uL; Lymphocytes % (auto) 2.8 % (10.0-50.0); Mean Corpuscular Hemoglobin 27.1 pg (28.0-32.0); Mean Corpuscular Hgb Conc. 31.7 g/dL (32.0-36.0); Mean Corpuscular Volume 85.5 fL (80.0-100.0); Mean Platelet Volume 10.9 fL (7.4-10.4); Monocytes # (auto) 0.5 uL; Monocytes % (auto) 3.9 % (0.0-12.0); Neutrophils % (auto) 93.3 % (37.0-80.0); Platelet Count (auto) 178 10^3/uL (140-450); Red Cell Distribution Width 18.1 % (11.6-16.0); White Blood Cell 11.8 10^3/uL (4.4-10.8)
[2016-09-07] MEDS: methylPREDNISolone SOD SUCC 40 MG/ML VL IV SCH ×3 (04:00→20:15)
[2016-09-07 04:06] LABS: BUN/Creatinine Ratio 63.2; Calcium 8.5 mg/dL (8.5-10.1); Potassium 4.3 mmol/L (3.5-5.1)
[2016-09-07] MEDS: FUROSEMIDE 40 MG/4 ML VIAL IV SCH ×2 (05:47→18:14)
[2016-09-07] MEDS: ACCU-CHEK COMFORT CURVE STRIP VI SCH ×3 (05:47→18:14)
[2016-09-07] MEDS: InsuLIN REG 1unit/0.01ml Soln (100units/ml) SC SCH ×3 (05:47→18:14)
[2016-09-07] MEDS: ALBUTEROL SULF 2.5 MG/0.5ML(0.5%) NEB SOLN NEB SCH ×5 (06:42→22:32)
[2016-09-07] MEDS: IPRATROPIUM BROM 0.5 MG/2.5ML INH SOL NEB SCH ×5 (06:42→22:32)
[2016-09-07] MEDS: BUDESONIDE (INHALATION) 0.5 MG/2 ML NEB NEB SCH ×2 (06:43→22:32)
[2016-09-07 07:41] LABS: Allen Test Yes; Base Excess 9.6 mmol/L (-2.0-2.0); Blood 02Sat 97.9 % (96-100); Blood COHb 0.3 % (0.5-1.5); Blood MetHb 0.2 % (0.0-1.5); HCO3 33.2 mmol/L (22-26.0); HHb 2.1 % (0.0-5.0); MODE MASK - BIPAP; O2Hb 97.4 % (94.0-97.0); PCO2 40.9 mmHg (35.0-45.0); PCO2(T) 40.9 mmHg (35.0-45.0); PO2 114.1 mmHg (80.0-100.0); PO2(T) 114.1 mmHg (80.0-100.0); Sample Type Arterial; Spont Vt 796; pH 7.527 (7.350-7.450)
[2016-09-07] MEDS: SODIUM CHLOR 0.9% PF (SALINE LOCK) 10ML VIAL IV SCH ×2 (09:26→22:15)
[2016-09-07] MEDS: LEVOFLOXACIN 500MG 100 ML IV SCH (09:26)
[2016-09-07] MEDS: POTASSIUM CHL 20 Meq TABLET PO SCH ×2 (09:26→22:15)
[2016-09-07] MEDS: PRO-STAT 64 30ML GT SCH ×2 (09:26→22:00)
[2016-09-07] MEDS: PANTOPRAZOLE SODIUM 40 MG/10 ML VIAL IV SCH (09:26)
[2016-09-07] MEDS: ENOXAPARIN SOD 120 MG/0.8 ML SYRINGE SC SCH ×2 (09:27→22:15)
[2016-09-07] MEDS ORDERED: DEXTROSE (50%) 50ML SYRG IV PRN (15:45)
[2016-09-07 16:24] LABS: INR 1.08 (0.9-1.15); Partial Thromboplastin Time 28.7 sec (22.64-33.71); Prothrombin Time 11.8 sec (9.37-12.3)
[2016-09-07] MEDS ORDERED: WARFARIN SODIUM 10 MG TAB PO ONE (20:00)
[2016-09-08] VITALS (9 sets, daily range): BP systolic 95–128; BP diastolic 54–86
[2016-09-08] MEDS: IPRATROPIUM BROM 0.5 MG/2.5ML INH SOL NEB SCH ×6 (02:55→22:29)
[2016-09-08] MEDS: ALBUTEROL SULF 2.5 MG/0.5ML(0.5%) NEB SOLN NEB SCH ×6 (02:55→22:29)
[2016-09-08] MEDS: VANCOMYCIN 1,500 MG in D5W 5% 250 ML IV SCH ×2 (03:28→15:09)
[2016-09-08] MEDS: methylPREDNISolone SOD SUCC 40 MG/ML VL IV SCH ×2 (04:02→11:56)
[2016-09-08] MEDS: BUDESONIDE (INHALATION) 0.5 MG/2 ML NEB NEB SCH ×2 (05:41→22:29)
[2016-09-08] MEDS: ACCU-CHEK COMFORT CURVE STRIP VI SCH ×5 (05:56→23:41)
[2016-09-08] MEDS: FUROSEMIDE 40 MG/4 ML VIAL IV SCH ×2 (05:56→18:28)
[2016-09-08] MEDS: InsuLIN REG 1unit/0.01ml Soln (100units/ml) SC SCH ×5 (05:57→23:41)
[2016-09-08 06:02] LABS: CONDITION Y; Hematocrit 35.7 % (41.0-53.0); Hemoglobin 11.6 g/dL (13.5-17.5); Mean Corpuscular Hemoglobin 27.7 pg (28.0-32.0); Mean Corpuscular Hgb Conc. 32.4 g/dL (32.0-36.0); Mean Corpuscular Volume 85.5 fL (80.0-100.0); Mean Platelet Volume 11.4 fL (7.4-10.4); Platelet Count (auto) 202 10^3/uL (140-450); Red Cell Distribution Width 18.4 % (11.6-16.0); SUSPECT SEE PRINTOUT; White Blood Cell 16.9 10^3/uL (4.4-10.8)
[2016-09-08 06:05] LABS: INR 1.13 (0.9-1.15); Prothrombin Time 12.3 sec (9.37-12.3)
[2016-09-08 06:17] LABS: Metamyelocytes % 0; Myelocytes % 0; Promyelocytes % 0; Reactive Lymphocytes 0
[2016-09-08 06:32] LABS: BUN/Creatinine Ratio 65.6; Calcium 8.3 mg/dL (8.5-10.1); Potassium 4.2 mmol/L (3.5-5.1)
[2016-09-08 07:25] LABS: Platelet Estimate Adequate
[2016-09-08 07:28] LABS: Ovalocytes FEW
[2016-09-08] MEDS: SODIUM CHLOR 0.9% PF (SALINE LOCK) 10ML VIAL IV SCH ×2 (10:00→22:05)
[2016-09-08] MEDS: PANTOPRAZOLE 40 MG TAB PO SCH (10:00)
[2016-09-08] MEDS: PRO-STAT 64 30ML GT SCH ×2 (10:00→22:00)
[2016-09-08] MEDS: POTASSIUM CHL 20 Meq TABLET PO SCH ×2 (10:00→22:03)
[2016-09-08] MEDS: ENOXAPARIN SOD 120 MG/0.8 ML SYRINGE SC SCH ×2 (10:40→22:03)
[2016-09-08] MEDS: LEVOFLOXACIN 500MG 100 ML IV SCH (10:40)
[2016-09-08] MEDS ORDERED: WARFARIN SODIUM 10 MG TAB PO ONE (17:00)
[2016-09-08] MEDS ORDERED: methylPREDNISolone SOD SUCC 40 MG/ML VL IV SCH (22:00)
[2016-09-09 00:20] VITALS: BP 107/59
[2016-09-09] MEDS: ALBUTEROL SULF 2.5 MG/0.5ML(0.5%) NEB SOLN NEB SCH ×6 (02:28→21:07)
[2016-09-09] MEDS: IPRATROPIUM BROM 0.5 MG/2.5ML INH SOL NEB SCH ×6 (02:28→21:07)
[2016-09-09] MEDS: VANCOMYCIN 1,500 MG in D5W 5% 250 ML IV SCH ×2 (02:34→19:37)
[2016-09-09 03:13] LABS: CONDITION Y; Hematocrit 36.2 % (41.0-53.0); Hemoglobin 11.7 g/dL (13.5-17.5); Mean Corpuscular Hemoglobin 27.1 pg (28.0-32.0); Mean Corpuscular Hgb Conc. 32.2 g/dL (32.0-36.0); Mean Corpuscular Volume 84.3 fL (80.0-100.0); Mean Platelet Volume 11.2 fL (7.4-10.4); Platelet Count (auto) 198 10^3/uL (140-450); Red Cell Distribution Width 18.9 % (11.6-16.0); SUSPECT SEE PRINTOUT; White Blood Cell 17.9 10^3/uL (4.4-10.8)
[2016-09-09 03:16] LABS: Metamyelocytes % 0; Promyelocytes % 0; Reactive Lymphocytes 0
[2016-09-09 03:27] LABS: INR 1.98 (0.9-1.15); Partial Thromboplastin Time 34.8 sec (22.64-33.71)
[2016-09-09 03:55] LABS: Prothrombin Time 21.7 sec (9.37-12.3)
[2016-09-09 03:57] LABS: BUN/Creatinine Ratio 54.5; Calcium 8.4 mg/dL (8.5-10.1); Potassium 4.3 mmol/L (3.5-5.1)
[2016-09-09 04:50] LABS: Myelocytes % 2
[2016-09-09 04:51] LABS: Anisocytosis Slight; Ovalocytes FEW; Platelet Estimate Adequate
[2016-09-09 05:00] VITALS: BP 111/70
[2016-09-09] MEDS: InsuLIN REG 1unit/0.01ml Soln (100units/ml) SC SCH ×3 (05:39→18:26)
[2016-09-09] MEDS: FUROSEMIDE 40 MG/4 ML VIAL IV SCH (05:39)
[2016-09-09] MEDS: ACCU-CHEK COMFORT CURVE STRIP VI SCH ×3 (05:39→18:26)
[2016-09-09] MEDS: BUDESONIDE (INHALATION) 0.5 MG/2 ML NEB NEB SCH ×2 (06:13→18:17)
[2016-09-09 09:00] VITALS: BP 105/66
[2016-09-09] MEDS: PRO-STAT 64 30ML GT SCH ×2 (10:00→23:03)
[2016-09-09] MEDS ORDERED: CATHFLO ACTIVASE (ALTEPLASE) 2 MG VIAL IV ONE (12:00)
[2016-09-09] MEDS: PANTOPRAZOLE 40 MG TAB PO SCH (12:08)
[2016-09-09] MEDS: SODIUM CHLOR 0.9% PF (SALINE LOCK) 10ML VIAL IV SCH ×2 (12:08→22:39)
[2016-09-09] MEDS: LEVOFLOXACIN 500MG 100 ML IV SCH (12:08)
[2016-09-09 13:00] VITALS: BP 97/52
[2016-09-09 17:00] VITALS: BP 100/57
[2016-09-09] MEDS ORDERED: WARFARIN SODIUM 2.5 MG TAB PO ONE (17:00)
[2016-09-09 22:00] VITALS: BP 101/64
[2016-09-10] MEDS: ACCU-CHEK COMFORT CURVE STRIP VI SCH ×4 (00:47→17:00)
[2016-09-10] MEDS: InsuLIN REG 1unit/0.01ml Soln (100units/ml) SC SCH ×4 (00:47→17:00)
[2016-09-10] MEDS: IPRATROPIUM BROM 0.5 MG/2.5ML INH SOL NEB SCH ×6 (02:00→22:35)
[2016-09-10] MEDS: ALBUTEROL SULF 2.5 MG/0.5ML(0.5%) NEB SOLN NEB SCH ×6 (02:00→22:35)
[2016-09-10 05:28] LABS: Basophils # (auto) 0 uL; CONDITION Y; Eosinophils # (auto) 0 uL; Eosinophils % (auto) 0.2 % (0.0-7.0); Hematocrit 31.6 % (41.0-53.0); Hemoglobin 10.4 g/dL (13.5-17.5); Lymphocytes # (auto) 0.5 uL; Lymphocytes % (auto) 6.8 % (10.0-50.0); Mean Corpuscular Hemoglobin 27.3 pg (28.0-32.0); Mean Corpuscular Hgb Conc. 32.8 g/dL (32.0-36.0); Mean Corpuscular Volume 83.2 fL (80.0-100.0); Mean Platelet Volume 10.9 fL (7.4-10.4); Monocytes # (auto) 0.1 uL; Monocytes % (auto) 0.8 % (0.0-12.0); Neutrophils # (auto) 6.8 uL; Neutrophils % (auto) 92.2 % (37.0-80.0); Platelet Count (auto) 146 10^3/uL (140-450); Red Cell Distribution Width 18.9 % (11.6-16.0); White Blood Cell 7.4 10^3/uL (4.4-10.8)
[2016-09-10 05:30] VITALS: BP 103/63
[2016-09-10 05:42] LABS: INR 2.22 (0.9-1.15); Partial Thromboplastin Time 33.2 sec (22.64-33.71)
[2016-09-10 05:46] LABS: Prothrombin Time 24.4 sec (9.37-12.3)
[2016-09-10 05:48] LABS: BUN/Creatinine Ratio 61.2; Calcium 7.5 mg/dL (8.5-10.1); Potassium 3.6 mmol/L (3.5-5.1)
[2016-09-10 07:57] VITALS: BP 90/55
[2016-09-10] MEDS ORDERED: FUROSEMIDE 40 MG/4 ML VIAL IV SCH (10:00)
[2016-09-10] MEDS: BUDESONIDE (INHALATION) 0.5 MG/2 ML NEB NEB SCH ×2 (10:33→19:49)
[2016-09-10] MEDS: SODIUM CHLOR 0.9% PF (SALINE LOCK) 10ML VIAL IV SCH (11:09)
[2016-09-10] MEDS: PRO-STAT 64 30ML GT SCH ×2 (11:09→22:00)
[2016-09-10] MEDS: PANTOPRAZOLE 40 MG TAB PO SCH (11:10)
[2016-09-10] MEDS: POTASSIUM CHL 10% (20 MEQ/15ML) ORAL SOLN PO SCH (11:10)
[2016-09-10] MEDS: predniSONE 20 MG TAB PO SCH (11:10)
[2016-09-10 12:00] VITALS: BP 97/53
[2016-09-10] MEDS: VANCOMYCIN 1,500 MG in D5W 5% 250 ML IV SCH (12:18)
[2016-09-10] MEDS: HYDROcodone-ACET 5/325MG TAB PO PRN ×2 (12:19→20:48)
[2016-09-10] MEDS ORDERED: WARFARIN SODIUM 1 MG TAB PO ONE (17:00)
[2016-09-10 17:16] VITALS: BP 101/61
[2016-09-10 21:52] VITALS: BP 115/60
[2016-09-11 04:42] VITALS: BP 105/58
[2016-09-11] MEDS: InsuLIN REG 1unit/0.01ml Soln (100units/ml) SC SCH ×4 (05:38→16:59)
[2016-09-11] MEDS: ACCU-CHEK COMFORT CURVE STRIP VI SCH ×4 (05:39→16:59)
[2016-09-11] MEDS: IPRATROPIUM BROM 0.5 MG/2.5ML INH SOL NEB SCH ×5 (05:47→22:17)
[2016-09-11] MEDS: ALBUTEROL SULF 2.5 MG/0.5ML(0.5%) NEB SOLN NEB SCH ×5 (05:47→22:17)
[2016-09-11] MEDS: SODIUM CHLOR 0.9% PF (SALINE LOCK) 10ML VIAL IV SCH ×3 (06:21→22:10)
[2016-09-11] MEDS: VANCOMYCIN 1,500 MG in D5W 5% 250 ML IV SCH (06:21)
[2016-09-11 06:33] LABS: Basophils # (auto) 0 uL; Basophils % (auto) 0.1 % (0.0-2.0); CONDITION Y; Eosinophils # (auto) 0 uL; Eosinophils % (auto) 0.2 % (0.0-7.0); Hematocrit 31.3 % (41.0-53.0); Hemoglobin 10.2 g/dL (13.5-17.5); Lymphocytes # (auto) 0.4 uL; Lymphocytes % (auto) 5.8 % (10.0-50.0); Mean Corpuscular Hemoglobin 27.3 pg (28.0-32.0); Mean Corpuscular Hgb Conc. 32.8 g/dL (32.0-36.0); Mean Corpuscular Volume 83.4 fL (80.0-100.0); Mean Platelet Volume 10.6 fL (7.4-10.4); Monocytes # (auto) 0.4 uL; Monocytes % (auto) 4.7 % (0.0-12.0); Neutrophils # (auto) 6.8 uL; Neutrophils % (auto) 89.2 % (37.0-80.0); Platelet Count (auto) 132 10^3/uL (140-450); Red Cell Distribution Width 18.5 % (11.6-16.0); White Blood Cell 7.6 10^3/uL (4.4-10.8)
[2016-09-11 06:38] LABS: INR 1.89 (0.9-1.15); Partial Thromboplastin Time 34.3 sec (22.64-33.71)
[2016-09-11 06:41] LABS: Prothrombin Time 20.7 sec (9.37-12.3)
[2016-09-11 09:00] VITALS: BP 90/58
[2016-09-11] MEDS: LEVOFLOXACIN 500 MG TAB PO SCH (09:29)
[2016-09-11] MEDS: FUROSEMIDE 20 MG TAB PO SCH (09:29)
[2016-09-11] MEDS: predniSONE 20 MG TAB PO SCH (09:30)
[2016-09-11] MEDS: PANTOPRAZOLE 40 MG TAB PO SCH (09:30)
[2016-09-11] MEDS: POTASSIUM CHL 10% (20 MEQ/15ML) ORAL SOLN PO SCH (09:30)
[2016-09-11] MEDS: PRO-STAT 64 30ML GT SCH (09:30)
[2016-09-11] MEDS: BUDESONIDE (INHALATION) 0.5 MG/2 ML NEB NEB SCH ×2 (10:17→18:02)
[2016-09-11 13:00] VITALS: BP 109/56
[2016-09-11 15:01] VITALS: BP 112/72
[2016-09-11] MEDS ORDERED: CARVEDILOL 3.125 MG TAB PO ONE (15:15)
[2016-09-11] MEDS ORDERED: DIGOXIN 0.125 MG TAB PO ONE (15:15)
[2016-09-11 17:00] VITALS: BP 113/73
[2016-09-11] MEDS ORDERED: WARFARIN SODIUM 2 MG TAB PO ONE (17:00)
[2016-09-11 21:58] VITALS: BP 107/61
[2016-09-11] MEDS: CARVEDILOL 3.125 MG TAB PO SCH (22:10)
[2016-09-12] MEDS: ACCU-CHEK COMFORT CURVE STRIP VI SCH ×5 (00:24→23:27)
[2016-09-12] MEDS: VANCOMYCIN 1,500 MG in D5W 5% 250 ML IV SCH (00:54)
[2016-09-12] MEDS: PRO-STAT 64 30ML GT SCH ×3 (00:55→21:46)
[2016-09-12 01:49] VITALS: BP 107/61
[2016-09-12] MEDS: IPRATROPIUM BROM 0.5 MG/2.5ML INH SOL NEB SCH ×6 (02:04→22:05)
[2016-09-12] MEDS: ALBUTEROL SULF 2.5 MG/0.5ML(0.5%) NEB SOLN NEB SCH ×6 (02:04→22:05)
[2016-09-12] MEDS: HYDROcodone-ACET 5/325MG TAB PO PRN ×2 (02:44→09:55)
[2016-09-12 04:42] VITALS: BP 95/63
[2016-09-12] MEDS: InsuLIN REG 1unit/0.01ml Soln (100units/ml) SC SCH ×5 (06:00→23:26)
[2016-09-12 06:01] LABS: Basophils # (auto) 0 uL; CONDITION Y; Eosinophils # (auto) 0 uL; Eosinophils % (auto) 0.3 % (0.0-7.0); Hematocrit 29.9 % (41.0-53.0); Hemoglobin 9.7 g/dL (13.5-17.5); Lymphocytes # (auto) 0.6 uL; Lymphocytes % (auto) 7.6 % (10.0-50.0); Mean Corpuscular Hemoglobin 27.5 pg (28.0-32.0); Mean Corpuscular Hgb Conc. 32.5 g/dL (32.0-36.0); Mean Corpuscular Volume 84.4 fL (80.0-100.0); Mean Platelet Volume 10.4 fL (7.4-10.4); Monocytes # (auto) 0.3 uL; Monocytes % (auto) 4.2 % (0.0-12.0); Neutrophils # (auto) 6.6 uL; Neutrophils % (auto) 87.9 % (37.0-80.0); Platelet Count (auto) 125 10^3/uL (140-450); Red Cell Distribution Width 18.9 % (11.6-16.0); White Blood Cell 7.5 10^3/uL (4.4-10.8)
[2016-09-12 06:09] LABS: INR 1.76 (0.9-1.15); Partial Thromboplastin Time 35.4 sec (22.64-33.71)
[2016-09-12 06:10] LABS: Prothrombin Time 19.3 sec (9.37-12.3)
[2016-09-12 06:29] LABS: Calcium 7.4 mg/dL (8.5-10.1); Potassium 3.6 mmol/L (3.5-5.1)
[2016-09-12 06:31] LABS: BUN/Creatinine Ratio 37.8
[2016-09-12 09:43] VITALS: BP 92/60
[2016-09-12] MEDS: PANTOPRAZOLE 40 MG TAB PO SCH (09:54)
[2016-09-12] MEDS: LEVOFLOXACIN 500 MG TAB PO SCH (09:54)
[2016-09-12] MEDS: predniSONE 20 MG TAB PO SCH (09:54)
[2016-09-12] MEDS: POTASSIUM CHL 10% (20 MEQ/15ML) ORAL SOLN PO SCH (09:56)
[2016-09-12] MEDS: SODIUM CHLOR 0.9% PF (SALINE LOCK) 10ML VIAL IV SCH ×2 (10:00→21:45)
[2016-09-12] MEDS: CARVEDILOL 3.125 MG TAB PO SCH (10:00)
[2016-09-12] MEDS: DIGOXIN 0.125 MG TAB PO SCH (10:00)
[2016-09-12] MEDS: FUROSEMIDE 20 MG TAB PO SCH (10:00)
[2016-09-12] MEDS: BUDESONIDE (INHALATION) 0.5 MG/2 ML NEB NEB SCH ×2 (10:05→18:51)
[2016-09-12] MEDS ORDERED: TEMAZEPAM 15 MG CAP PO PRN (11:15)
[2016-09-12] MEDS ORDERED: LORazepam 2MG/ML-1ML VIAL IV PRN (11:15)
[2016-09-12] MEDS ORDERED: LORazepam 0.5 MG TAB PO PRN (11:15)
[2016-09-12] MEDS: APIXABAN 5 MG TAB PO SCH ×2 (12:01→21:45)
[2016-09-12 13:00] VITALS: BP 92/60
[2016-09-12 17:02] VITALS: BP 113/69
[2016-09-12 21:28] VITALS: BP 122/78
[2016-09-13] MEDS: IPRATROPIUM BROM 0.5 MG/2.5ML INH SOL NEB SCH ×6 (02:35→22:00)
[2016-09-13] MEDS: ALBUTEROL SULF 2.5 MG/0.5ML(0.5%) NEB SOLN NEB SCH ×6 (02:35→22:00)
[2016-09-13 05:11] VITALS: BP 105/62
[2016-09-13] MEDS: InsuLIN REG 1unit/0.01ml Soln (100units/ml) SC SCH ×4 (06:00→23:36)
[2016-09-13] MEDS: ACCU-CHEK COMFORT CURVE STRIP VI SCH ×4 (06:12→23:36)
[2016-09-13] MEDS: BUDESONIDE (INHALATION) 0.5 MG/2 ML NEB NEB SCH ×2 (06:18→19:27)
[2016-09-13 07:54] VITALS: BP 98/56
[2016-09-13] MEDS: APIXABAN 5 MG TAB PO SCH ×2 (09:23→21:44)
[2016-09-13] MEDS: DIGOXIN 0.125 MG TAB PO SCH (09:23)
[2016-09-13] MEDS: PANTOPRAZOLE 40 MG TAB PO SCH (09:24)
[2016-09-13] MEDS: predniSONE 20 MG TAB PO SCH (09:24)
[2016-09-13] MEDS: LEVOFLOXACIN 500 MG TAB PO SCH (09:24)
[2016-09-13] MEDS: FUROSEMIDE 20 MG TAB PO SCH (09:26)
[2016-09-13] MEDS: POTASSIUM CHL 10% (20 MEQ/15ML) ORAL SOLN PO SCH (09:26)
[2016-09-13] MEDS: PRO-STAT 64 30ML GT SCH ×2 (10:18→21:44)
[2016-09-13] MEDS: SODIUM CHLOR 0.9% PF (SALINE LOCK) 10ML VIAL IV SCH ×2 (10:18→21:44)
[2016-09-13 12:16] VITALS: BP 97/55
[2016-09-13 13:16] VITALS: BP 98/56
[2016-09-13 17:00] VITALS: BP 120/70
[2016-09-13 21:30] VITALS: BP 124/59
[2016-09-14] MEDS: IPRATROPIUM BROM 0.5 MG/2.5ML INH SOL NEB SCH ×6 (01:59→19:09)
[2016-09-14] MEDS: ALBUTEROL SULF 2.5 MG/0.5ML(0.5%) NEB SOLN NEB SCH ×6 (01:59→19:09)
[2016-09-14] MEDS: HYDROcodone-ACET 5/325MG TAB PO PRN ×2 (02:04→09:14)
[2016-09-14 05:00] VITALS: BP 104/59
[2016-09-14] MEDS: ACCU-CHEK COMFORT CURVE STRIP VI SCH ×3 (05:22→18:00)
[2016-09-14] MEDS: InsuLIN REG 1unit/0.01ml Soln (100units/ml) SC SCH ×3 (05:22→18:00)
[2016-09-14] MEDS: BUDESONIDE (INHALATION) 0.5 MG/2 ML NEB NEB SCH ×2 (06:50→19:09)
[2016-09-14 08:51] VITALS: BP 102/66
[2016-09-14] MEDS: PANTOPRAZOLE 40 MG TAB PO SCH (09:15)
[2016-09-14] MEDS: FUROSEMIDE 20 MG TAB PO SCH (09:17)
[2016-09-14] MEDS: predniSONE 20 MG TAB PO SCH (09:17)
[2016-09-14] MEDS: DIGOXIN 0.125 MG TAB PO SCH (09:18)
[2016-09-14] MEDS: LEVOFLOXACIN 500 MG TAB PO SCH (09:18)
[2016-09-14] MEDS: POTASSIUM CHL 10% (20 MEQ/15ML) ORAL SOLN PO SCH (09:19)
[2016-09-14] MEDS: APIXABAN 5 MG TAB PO SCH (09:39)
[2016-09-14] MEDS: SODIUM CHLOR 0.9% PF (SALINE LOCK) 10ML VIAL IV SCH (09:39)
[2016-09-14] MEDS: PRO-STAT 64 30ML GT SCH (09:39)
[2016-09-14 13:00] VITALS: BP 101/66
[2016-09-14 16:20] VITALS: BP 102/66
[2016-09-14 17:00] VITALS: BP 119/76
== END 2016-09-14 20:15 | disposition home health service (06) | DRG 870 ==
LOC: ER 05:40 → EDBD 05:40 → TELE 05:41 → ICU WEST 08-26 05:40 → DOU IN ICU 09-08 00:46 → TELE-EAST 09-09 00:20
PROVIDERS: ADMIT Nurse Practitioner Family; ATTEND Internal Medicine
PROC: 5A1955Z Respiratory Ventilation, Greater than 96 Consecutive Hours (ICD-10-PCS; principal; 2016-08-24)
PROC: 0BH17EZ Insertion of Endotracheal Airway into Trachea, Via Natural or Artificial Opening (ICD-10-PCS; 2016-08-24)
PROC: 5A09557 Assistance with Respiratory Ventilation, Greater than 96 Consecutive Hours, Continuous Positive Airway Pressure (ICD-10-PCS; 2016-08-24)
PROC: 0BH17EZ Insertion of Endotracheal Airway into Trachea, Via Natural or Artificial Opening (ICD-10-PCS; 2016-09-02)
PROC: 02HV33Z Insertion of Infusion Device into Superior Vena Cava, Percutaneous Approach (ICD-10-PCS; 2016-09-03)
DX: A41.1 Sepsis due to other specified staphylococcus (principal); J96.22 Acute and chronic respiratory failure with hypercapnia; G92 Toxic encephalopathy; R65.21 Severe sepsis with septic shock; J15.0 Pneumonia due to Klebsiella pneumoniae; I50.33 Acute on chronic diastolic (congestive) heart failure; J96.21 Acute and chronic respiratory failure with hypoxia; J44.1 Chronic obstructive pulmonary disease with (acute) exacerbation; J44.0 Chronic obstructive pulmonary disease with (acute) lower respiratory infection; E46 Unspecified protein-calorie malnutrition; E87.0 Hyperosmolality and hypernatremia; G72.81 Critical illness myopathy; I42.0 Dilated cardiomyopathy; J95.851 Ventilator associated pneumonia; N17.9 Acute kidney failure, unspecified; Z68.41 Body mass index [BMI] 40.0-44.9, adult; M25.031 Hemarthrosis, right wrist; I11.0 Hypertensive heart disease with heart failure; I48.2 Chronic atrial fibrillation; E78.5 Hyperlipidemia, unspecified; E66.01 Morbid (severe) obesity due to excess calories; G40.409 Other generalized epilepsy and epileptic syndromes, not intractable, without status epilepticus; G47.33 Obstructive sleep apnea (adult) (pediatric); R13.10 Dysphagia, unspecified; H57.02 Anisocoria; E11.9 Type 2 diabetes mellitus without complications; I48.0 Paroxysmal atrial fibrillation; F10.20 Alcohol dependence, uncomplicated; I25.10 Atherosclerotic heart disease of native coronary artery without angina pectoris; K57.90 Diverticulosis of intestine, part unspecified, without perforation or abscess without bleeding; K59.00 Constipation, unspecified; F41.9 Anxiety disorder, unspecified; G47.00 Insomnia, unspecified; B96.89 Other specified bacterial agents as the cause of diseases classified elsewhere; Y84.8 Other medical procedures as the cause of abnormal reaction of the patient, or of later complication, without mention of misadventure at the time of the procedure; Y82.8 Other medical devices associated with adverse incidents; K76.0 Fatty (change of) liver, not elsewhere classified; Z79.01 Long term (current) use of anticoagulants; Z79.899 Other long term (current) drug therapy; Z83.3 Family history of diabetes mellitus; Z99.81 Dependence on supplemental oxygen; Z85.828 Personal history of other malignant neoplasm of skin; Z86.718 Personal history of other venous thrombosis and embolism; Z86.73 Personal history of transient ischemic attack (TIA), and cerebral infarction without residual deficits; Z88.5 Allergy status to narcotic agent; Y92.89 Other specified places as the place of occurrence of the external cause
CPT/HCPCS: 36415; 36569; 36600; 70450; 71010; 71275; 74000; 80048; 80053; 80162; 80202; 81001; 82550; 82805; 82962; 83605; 83735; 83880; 84100; 84443; 84484; 85007; 85025; 85027; 85379; 85610; 85730; 87040; 87070; 87077; 87081; 87086; 87186; 87205; 92610; 93005; 93970; 93971; 94002; 94003; 94640; 94660; 95819; 96361; 96374; 96375; 97110; 97163; 97530; 99291; C9113; J0171; J0330; J0696; J1815; J1956; J2250; J2405; J2543; J2704; J3010; J3480; J3490; J7060

== ENCOUNTER 2017-02-27 01:37 | Inpatient (IN) | payer OTHER, MEDICAID ==
[~2017-02-27] VITALS: Ht 170.2 cm; Wt 126.1 kg
[2017-02-27] VITALS (11 sets, daily range): BP systolic 101–158; BP diastolic 50–94
[~2017-02-27 01:37] MED LIST changes: +AZITTAB6 PO; +CAR3125T PO; +POTA10SO11 GT; +RIVA20TA PO
[2017-02-27] MEDS ORDERED: SODIUM BICARBONATE 8.4% INJ 50ML SYRINGE ONE (01:39)
[2017-02-27] MEDS ORDERED: PROPOFOL 100 ML IV ONE (01:39)
[2017-02-27] MEDS ORDERED: MIDAZOLAM DRIP 100 mg/100mL NS 100 ML IV ONE (01:39)
[2017-02-27] MEDS ORDERED: PROPOFOL 100 ML IV SCH (01:40)
[2017-02-27] MEDS: MIDAZOLAM DRIP 100 mg/100mL NS 100 ML IV SCH ×2 (01:40→12:47)
[2017-02-27] MEDS ORDERED: NOREPINEPHRINE 8 MG/250ML KIT 250 ML IV SCH (01:40)
[2017-02-27] MEDS ORDERED: SODIUM CHLORIDE 0.9% 1,000 ML IV ONE ×2 (01:55→04:00)
[2017-02-27] MEDS ORDERED: LEVOFLOXACIN 500 MG/100 ML PREMIX BAG IV ONE (02:00)
[2017-02-27 02:18] LABS: Hematocrit 36.7 % (41.0-53.0); Hemoglobin 11.5 g/dL (13.5-17.5); Mean Corpuscular Hemoglobin 29.2 pg (28.0-32.0); Mean Corpuscular Hgb Conc. 31.3 g/dL (32.0-36.0); Mean Corpuscular Volume 93.2 fL (80.0-100.0); Platelet Count (auto) 344 10^3/uL (140-450); Red Blood Cells 3.94 10^6/uL (4.5-5.90); Red Cell Distribution Width 14.8 % (11.8-14.3); White Blood Cell 12.5 10^3/uL (4.4-10.8)
[2017-02-27 02:28] LABS: Basophils % (manual) 0 (0.0-2.0); Blast Cells 0; Eosinophils % (manual) 0 (0-7); Myelocytes % 0; Promyelocytes % 0; Reactive Lymphocytes 0
[2017-02-27 02:33] LABS: INR 1.19 (0.9-1.15); Partial Thromboplastin Time 27.5 sec (22.64-33.71)
[2017-02-27 02:38] LABS: Albumin 2.7 g/dL (3.4-5.0); BUN/Creatinine Ratio 8.9; Magnesium 2.5 mg/dL (1.6-2.6); Potassium 5.2 mmol/L (3.5-5.1)
[2017-02-27 02:43] LABS: Bilirubin, Total 0.5 mg/dL (0.2-1.0); Total Protein 7.4 g/dL (6.4-8.2)
[2017-02-27 02:44] LABS: Lactic Acid w/Reflex 8.5 mmol/L (0.4-2.0)
[2017-02-27 02:58] LABS: Band Neutrophils % (manual) 6; Lymphocytes % (manual) 20 (10.0-50.0); Metamyelocytes % 3; Monocytes % (manual) 3 (0-12)
[2017-02-27] MEDS ORDERED: LEVETIRACETAM 500 MG/5ML INJ IV ONE (03:06)
[2017-02-27] MEDS ORDERED: LEVETIRACETAM INJ 1,000 MG in D5W 5% 100 ML IV ONE ×2 (03:15→03:45)
[2017-02-27] MEDS ORDERED: LORazepam 2MG/ML-1ML VIAL ONE (03:21)
[2017-02-27] MEDS ORDERED: LORazepam 2MG/ML-1ML VIAL IV ONE (03:30)
[2017-02-27] MEDS ORDERED: ACETAMINOPHEN 325 MG RECT SUPP PR ONE (03:42)
[2017-02-27] MEDS ORDERED: ACETAMINOPHEN 650 MG RECT SUPP PR ONE (03:45)
[2017-02-27] MEDS ORDERED: DOPamine 1600MCG/ML D5W 250 ML IV ONE ×2 (03:51→04:00)
[2017-02-27] MEDS ORDERED: IOHEXOL 350 MG/ML 100ML IJ ONE (04:11)
[2017-02-27] MEDS ORDERED: DOPamine 1600MCG/ML D5W 250 ML IV SCH (06:14)
[2017-02-27] MEDS ORDERED: PHENYTOIN IV DILANTIN 1,000 MG in SODIUM CHL 0.9% 250 ML IV ONE (06:15)
[2017-02-27] MEDS ORDERED: DEXTROSE (50%) 50ML SYRG IV PRN (06:15)
[2017-02-27] MEDS ORDERED: NITROGLYCERIN 0.4 MG SL TAB SL PRN (06:15)
[2017-02-27] MEDS ORDERED: ONDANSETRON HCL 4 MG/2 ML VIAL IV PRN (06:15)
[2017-02-27] MEDS ORDERED: PIPERACILLIN-TAZOB 2.25GM 50 ML IV ONE ×2 (06:15→06:54)
[2017-02-27] MEDS ORDERED: VANCOMYCIN PER PHARMACY 0 MG IV SCH (06:15)
[2017-02-27] MEDS ORDERED: PHENYTOIN SODIUM 50 MG/ML 5ML INJ VIAL IV ONE (06:20)
[2017-02-27 06:38] LABS: Urine Bacteria MOD /hpf (None Seen); Urine Blood 3+ /uL (Negative); Urine Hyaline Cast MANY /lpf (0 - 2); Urine Mucus FEW (None Seen); Urine WBC 85 /hpf (0 - 3); Urine WBC Clumps PRESENT /hpf (None Seen)
[2017-02-27] MEDS ORDERED: NOREPINEPHRINE 8 MG/250ML KIT 250 ML IV ONE (06:38)
[2017-02-27] MEDS: NOREPINEPHRINE 8 MG/250ML KIT 250 ML IV SCH (07:00)
[2017-02-27] MEDS: PIPERACILLIN-TAZOB 2.25GM 50 ML IV SCH ×2 (07:00→12:59)
[2017-02-27 07:01] LABS: Benzodiazephine Screen, Urine NEGATIVE (NEGATIVE); Cannabinoid Screen, Urine NEGATIVE (NEGATIVE); Cocaine Screen, Urine NEGATIVE (NEGATIVE); Opiate Scree,Urine NEGATIVE (NEGATIVE); Phencyclidine Screen, Urine NEGATIVE (NEGATIVE)
[2017-02-27 07:05] LABS: Alcohol, Urine < 3.0 mg/dL (0-5); Amphetamine Screen, Urine NEGATIVE (NEGATIVE); Barbiturate Scree,Urine NEGATIVE (NEGATIVE)
[2017-02-27] MEDS: SODIUM CHLORIDE 0.9% 1,000 ML IV SCH ×2 (08:23→18:30)
[2017-02-27] MEDS ORDERED: VANCOMYCIN 1GM/250ML 250 ML IV SCH (09:00)
[2017-02-27] MEDS: PANTOPRAZOLE 40 MG/10 ML VIAL IV SCH (09:20)
[2017-02-27] MEDS: HEPARIN SODIUM (PORCINE) 5000 UNITS/ML 1ML VIAL SC SCH ×2 (09:20→22:07)
[2017-02-27] MEDS ORDERED: ASPirin 81 mg TAB PO SCH (10:00)
[2017-02-27] MEDS: ACETAMINOPHEN 325 MG TAB PO PRN ×2 (10:45→17:03)
[2017-02-27] MEDS: ACCU-CHEK COMFORT CURVE STRIP VI SCH ×2 (12:59→17:43)
[2017-02-27] MEDS: InsuLIN REG 1unit/0.01ml Soln (100units/ml) SC SCH ×2 (12:59→17:43)
[2017-02-27 13:27] LABS: Basophils # (auto) 0.1 uL; Basophils % (auto) 0.8 % (0.0-2.0); Eosinophils # (auto) 0 uL; Eosinophils % (auto) 0.1 % (0.0-7.0); Hematocrit 39.5 % (41.0-53.0); Hemoglobin 12.6 g/dL (13.5-17.5); Lymphocytes # (auto) 1.3 uL; Lymphocytes % (auto) 11.4 % (10.0-50.0); Mean Corpuscular Hemoglobin 29.3 pg (28.0-32.0); Mean Corpuscular Hgb Conc. 31.9 g/dL (32.0-36.0); Mean Corpuscular Volume 91.9 fL (80.0-100.0); Monocytes # (auto) 0.9 uL; Monocytes % (auto) 7.5 % (0.0-12.0); Neutrophils # (auto) 9.2 uL; Neutrophils % (auto) 80.2 % (37.0-80.0); Nucleated Red Blood Cells % 0.1 %; Platelet Count (auto) 322 10^3/uL (140-450); White Blood Cell 11.4 10^3/uL (4.4-10.8)
[2017-02-27] MEDS: LINEZOLID 600MG/300ML 300 ML IV SCH ×2 (13:48→22:07)
[2017-02-27 13:50] LABS: BUN/Creatinine Ratio 12.4; Bilirubin, Total 0.6 mg/dL (0.2-1.0); Calcium 7.8 mg/dL (8.5-10.1); Potassium 4.2 mmol/L (3.5-5.1); Total Protein 7.7 g/dL (6.4-8.2)
[2017-02-27] MEDS ORDERED: SODIUM BICARBONATE 8.4% INJ 50ML SYRINGE IV ONE (14:31)
[2017-02-27] MEDS ORDERED: EPINEPHrine HCL 1 MG/10 ML SYRG IV ONE (14:31)
[2017-02-27] MEDS ORDERED: ALBUTEROL SULF 2.5 MG/0.5ML(0.5%) NEB SOLN NEB PRN (15:00)
[2017-02-27] MEDS ORDERED: IPRATROPIUM BROM 0.5 MG/2.5ML INH SOL NEB PRN (15:00)
[2017-02-27] MEDS: PIPERACILLIN-TAZOB 3.375GM 50-150ml IV SCH (18:06)
[2017-02-27] MEDS: ALBUTEROL SULF 2.5 MG/0.5ML(0.5%) NEB SOLN NEB SCH (18:42)
[2017-02-27] MEDS: IPRATROPIUM BROM 0.5 MG/2.5ML INH SOL NEB SCH (18:42)
[2017-02-28] VITALS (12 sets, daily range): BP systolic 97–130; BP diastolic 53–80
[2017-02-28] MEDS: ACCU-CHEK COMFORT CURVE STRIP VI SCH ×5 (00:30→23:49)
[2017-02-28] MEDS: PIPERACILLIN-TAZOB 3.375GM 50-150ml IV SCH ×5 (00:31→23:58)
[2017-02-28] MEDS: InsuLIN REG 1unit/0.01ml Soln (100units/ml) SC SCH ×5 (00:35→23:59)
[2017-02-28] MEDS: ALBUTEROL SULF 2.5 MG/0.5ML(0.5%) NEB SOLN NEB SCH ×4 (00:40→18:00)
[2017-02-28] MEDS: IPRATROPIUM BROM 0.5 MG/2.5ML INH SOL NEB SCH ×4 (00:40→18:00)
[2017-02-28] MEDS: MIDAZOLAM DRIP 100 mg/100mL NS 100 ML IV SCH (01:27)
[2017-02-28] MEDS ORDERED: AMIODARONE HCL 150 MG in D5W 5% 100 ML IV ONE (02:45)
[2017-02-28] MEDS ORDERED: AMIODARONE HCL (50 MG/ ML) 3 ML VIAL IV ONE (02:46)
[2017-02-28] MEDS ORDERED: AMIODARONE HCL 900 MG IV ONE (02:46)
[2017-02-28] MEDS ORDERED: AMIODARONE HCL 900 MG in DEXTROSE 500 ML IV SCH (02:50)
[2017-02-28] MEDS ORDERED: DILTIAZEM HCL 25 MG/5 ML VIAL IV ONE (04:45)
[2017-02-28 04:58] LABS: Basophils # (auto) 0.1 uL; Basophils % (auto) 0.7 % (0.0-2.0); Eosinophils # (auto) 0.1 uL; Eosinophils % (auto) 0.5 % (0.0-7.0); Hematocrit 35.8 % (41.0-53.0); Hemoglobin 11.4 g/dL (13.5-17.5); Lymphocytes % (auto) 9.5 % (10.0-50.0); Mean Corpuscular Hemoglobin 29.1 pg (28.0-32.0); Mean Corpuscular Hgb Conc. 31.9 g/dL (32.0-36.0); Mean Corpuscular Volume 91.2 fL (80.0-100.0); Monocytes # (auto) 1.2 uL; Monocytes % (auto) 10.6 % (0.0-12.0); Neutrophils # (auto) 8.7 uL; Neutrophils % (auto) 78.7 % (37.0-80.0); Nucleated Red Blood Cells % 0.1 %; Platelet Count (auto) 261 10^3/uL (140-450); Red Blood Cells 3.93 10^6/uL (4.5-5.90); Red Cell Distribution Width 14.9 % (11.8-14.3); White Blood Cell 11.1 10^3/uL (4.4-10.8)
[2017-02-28 05:32] LABS: Albumin 2.6 g/dL (3.4-5.0); BUN/Creatinine Ratio 13.5; Bilirubin, Total 0.6 mg/dL (0.2-1.0); Calcium 7.7 mg/dL (8.5-10.1); Total Protein 6.9 g/dL (6.4-8.2)
[2017-02-28] MEDS: NOREPINEPHRINE 8 MG/250ML KIT 250 ML IV SCH (06:14)
[2017-02-28] MEDS: SODIUM CHLORIDE 0.9% 1,000 ML IV SCH ×2 (08:07→20:23)
[2017-02-28] MEDS: AMIODARONE HCL 900 MG in DEXTROSE 500 ML IV SCH (10:04)
[2017-02-28] MEDS: PANTOPRAZOLE 40 MG/10 ML VIAL IV SCH (10:08)
[2017-02-28] MEDS: HEPARIN SODIUM (PORCINE) 5000 UNITS/ML 1ML VIAL SC SCH ×2 (10:09→21:49)
[2017-02-28] MEDS: LINEZOLID 600MG/300ML 300 ML IV SCH ×2 (10:32→21:49)
[2017-02-28] MEDS: ASPirin 81 mg TAB PO SCH (10:38)
[2017-02-28] MEDS ORDERED: IOHEXOL 350 MG/ML 100ML IJ ONE (18:55)
[2017-03-01] VITALS (12 sets, daily range): BP systolic 109–132; BP diastolic 7–77
[2017-03-01] MEDS: ALBUTEROL SULF 2.5 MG/0.5ML(0.5%) NEB SOLN NEB SCH ×5 (00:16→23:59)
[2017-03-01] MEDS: IPRATROPIUM BROM 0.5 MG/2.5ML INH SOL NEB SCH ×5 (00:16→23:59)
[2017-03-01] MEDS: PIPERACILLIN-TAZOB 3.375GM 50-150ml IV SCH ×3 (05:55→17:37)
[2017-03-01] MEDS: InsuLIN REG 1unit/0.01ml Soln (100units/ml) SC SCH ×3 (05:56→17:43)
[2017-03-01] MEDS: ACCU-CHEK COMFORT CURVE STRIP VI SCH ×3 (05:56→17:43)
[2017-03-01 08:32] LABS: Basophils # (auto) 0.1 uL; Basophils % (auto) 0.6 % (0.0-2.0); Eosinophils # (auto) 0.2 uL; Eosinophils % (auto) 2.6 % (0.0-7.0); Hematocrit 34.2 % (41.0-53.0); Hemoglobin 11.2 g/dL (13.5-17.5); Lymphocytes # (auto) 0.7 uL; Lymphocytes % (auto) 8.5 % (10.0-50.0); Mean Corpuscular Hemoglobin 29.8 pg (28.0-32.0); Mean Corpuscular Hgb Conc. 32.7 g/dL (32.0-36.0); Mean Corpuscular Volume 91.2 fL (80.0-100.0); Monocytes # (auto) 0.7 uL; Monocytes % (auto) 9.1 % (0.0-12.0); Neutrophils # (auto) 6.4 uL; Neutrophils % (auto) 79.2 % (37.0-80.0); Platelet Count (auto) 233 10^3/uL (140-450); Red Blood Cells 3.76 10^6/uL (4.5-5.90); Red Cell Distribution Width 15.3 % (11.8-14.3); White Blood Cell 8.1 10^3/uL (4.4-10.8)
[2017-03-01] MEDS: NOREPINEPHRINE 8 MG/250ML KIT 250 ML IV SCH (08:39)
[2017-03-01] MEDS: SODIUM CHLORIDE 0.9% 1,000 ML IV SCH ×2 (08:44→14:00)
[2017-03-01] MEDS: AMIODARONE HCL 900 MG in DEXTROSE 500 ML IV SCH (08:50)
[2017-03-01 09:05] LABS: BUN/Creatinine Ratio 14.9; Potassium 3.4 mmol/L (3.5-5.1)
[2017-03-01 09:06] LABS: Albumin 2.3 g/dL (3.4-5.0); Bilirubin, Total 0.6 mg/dL (0.2-1.0); Calcium 7.8 mg/dL (8.5-10.1); Total Protein 6.4 g/dL (6.4-8.2)
[2017-03-01] MEDS: HEPARIN SODIUM (PORCINE) 5000 UNITS/ML 1ML VIAL SC SCH ×2 (09:48→21:51)
[2017-03-01] MEDS: ASPirin 81 mg TAB PO SCH (09:48)
[2017-03-01] MEDS: LINEZOLID 600MG/300ML 300 ML IV SCH ×2 (09:48→21:47)
[2017-03-01] MEDS: MIDAZOLAM DRIP 100 mg/100mL NS 100 ML IV SCH (09:49)
[2017-03-01] MEDS: PANTOPRAZOLE 40 MG/10 ML VIAL IV SCH (09:57)
[2017-03-01] MEDS ORDERED: SODIUM CHLORIDE 0.9% 1,000 ML IV ONE (11:00)
[2017-03-01 19:26] LABS: BUN/Creatinine Ratio 15.3; Calcium 8.1 mg/dL (8.5-10.1); Potassium 3.5 mmol/L (3.5-5.1)
[2017-03-01] MEDS: ACETAMINOPHEN 325 MG TAB PO PRN (21:11)
[2017-03-02] VITALS (91 sets, daily range): BP systolic 90–132; BP diastolic 47–85
[2017-03-02] MEDS: InsuLIN REG 1unit/0.01ml Soln (100units/ml) SC SCH ×4 (00:45→17:59)
[2017-03-02] MEDS: ACCU-CHEK COMFORT CURVE STRIP VI SCH ×4 (00:45→17:59)
[2017-03-02] MEDS: PIPERACILLIN-TAZOB 3.375GM 50-150ml IV SCH ×4 (00:50→17:59)
[2017-03-02] MEDS: MIDAZOLAM DRIP 100 mg/100mL NS 100 ML IV SCH (01:40)
[2017-03-02 04:37] LABS: Calcium 8.3 mg/dL (8.5-10.1); Potassium 3.3 mmol/L (3.5-5.1)
[2017-03-02 04:39] LABS: BUN/Creatinine Ratio 14.9
[2017-03-02] MEDS: IPRATROPIUM BROM 0.5 MG/2.5ML INH SOL NEB SCH ×3 (05:59→18:28)
[2017-03-02] MEDS: ALBUTEROL SULF 2.5 MG/0.5ML(0.5%) NEB SOLN NEB SCH ×3 (05:59→18:28)
[2017-03-02] MEDS: NOREPINEPHRINE 8 MG/250ML KIT 250 ML IV SCH (06:14)
[2017-03-02] MEDS: AMIODARONE HCL 900 MG in DEXTROSE 500 ML IV SCH (08:50)
[2017-03-02] MEDS: SODIUM CHLORIDE 0.9% 1,000 ML IV SCH ×2 (09:14→21:44)
[2017-03-02] MEDS ORDERED: POTASSIUM CHL 10% (20 MEQ/15ML) 15ml ORAL SOLN GT ONE (09:15)
[2017-03-02] MEDS: ASPirin 81 mg TAB PO SCH (09:21)
[2017-03-02] MEDS: PANTOPRAZOLE 40 MG/10 ML VIAL IV SCH (09:21)
[2017-03-02] MEDS: HEPARIN SODIUM (PORCINE) 5000 UNITS/ML 1ML VIAL SC SCH ×2 (09:28→22:35)
[2017-03-02] MEDS: LINEZOLID 600MG/300ML 300 ML IV SCH ×2 (14:09→22:22)
[2017-03-03] VITALS (102 sets, daily range): BP systolic 87–153; BP diastolic 39–89
[2017-03-03] MEDS: PIPERACILLIN-TAZOB 3.375GM 50-150ml IV SCH ×2 (00:22→06:05)
[2017-03-03] MEDS: ACCU-CHEK COMFORT CURVE STRIP VI SCH ×4 (00:24→17:49)
[2017-03-03] MEDS: ALBUTEROL SULF 2.5 MG/0.5ML(0.5%) NEB SOLN NEB SCH ×4 (00:28→18:36)
[2017-03-03] MEDS: IPRATROPIUM BROM 0.5 MG/2.5ML INH SOL NEB SCH ×4 (00:28→18:35)
[2017-03-03] MEDS: MIDAZOLAM DRIP 100 mg/100mL NS 100 ML IV SCH (01:40)
[2017-03-03 03:46] LABS: Basophils # (auto) 0 uL; Basophils % (auto) 0.5 % (0.0-2.0); Eosinophils # (auto) 0.4 uL; Eosinophils % (auto) 5.9 % (0.0-7.0); Hematocrit 33.3 % (41.0-53.0); Hemoglobin 10.7 g/dL (13.5-17.5); Lymphocytes # (auto) 0.8 uL; Lymphocytes % (auto) 12.9 % (10.0-50.0); Mean Corpuscular Hemoglobin 29.3 pg (28.0-32.0); Mean Corpuscular Hgb Conc. 32.1 g/dL (32.0-36.0); Mean Corpuscular Volume 91.4 fL (80.0-100.0); Monocytes # (auto) 0.6 uL; Monocytes % (auto) 9.4 % (0.0-12.0); Neutrophils # (auto) 4.4 uL; Neutrophils % (auto) 71.3 % (37.0-80.0); Nucleated Red Blood Cells % 0.1 %; Platelet Count (auto) 203 10^3/uL (140-450); Red Blood Cells 3.64 10^6/uL (4.5-5.90); Red Cell Distribution Width 15.6 % (11.8-14.3); White Blood Cell 6.1 10^3/uL (4.4-10.8)
[2017-03-03 03:58] LABS: Calcium 8.2 mg/dL (8.5-10.1); Potassium 3.5 mmol/L (3.5-5.1)
[2017-03-03 04:06] LABS: BUN/Creatinine Ratio 12.6; Bilirubin, Total 0.4 mg/dL (0.2-1.0); Total Protein 6.2 g/dL (6.4-8.2)
[2017-03-03] MEDS: InsuLIN REG 1unit/0.01ml Soln (100units/ml) SC SCH ×4 (06:00→17:49)
[2017-03-03] MEDS ORDERED: BUMETANIDE (0.25 MG/ML) INJ 10ML IV ONE (08:45)
[2017-03-03] MEDS: AMIODARONE HCL 900 MG in DEXTROSE 500 ML IV SCH (08:50)
[2017-03-03] MEDS: NOREPINEPHRINE 8 MG/250ML KIT 250 ML IV SCH (09:06)
[2017-03-03] MEDS: HEPARIN SODIUM (PORCINE) 5000 UNITS/ML 1ML VIAL SC SCH ×2 (09:45→21:48)
[2017-03-03] MEDS: PANTOPRAZOLE 40 MG/10 ML VIAL IV SCH (09:46)
[2017-03-03] MEDS: cefTRIAXone 1GM/10ml IVPUSH 10 ML IV SCH (09:48)
[2017-03-03] MEDS: ASPirin 81 mg TAB PO SCH (09:49)
[2017-03-03] MEDS ORDERED: Diabetisource AC 1 Liter GT SCH (10:15)
[2017-03-03] MEDS: SODIUM CHLORIDE 0.9% 1,000 ML IV SCH (10:15)
[2017-03-03] MEDS: MIDAZOLAM DRIP 50 mg/50mL 50 ML IV SCH (11:15)
[2017-03-03] MEDS: METOCLOPRAMIDE HCL 5MG/ml INJ 2ml VIAL IV SCH ×2 (14:01→21:47)
[2017-03-04] VITALS (103 sets, daily range): BP systolic 85–126; BP diastolic 37–86
[2017-03-04] MEDS: ALBUTEROL SULF 2.5 MG/0.5ML(0.5%) NEB SOLN NEB SCH ×4 (00:13→18:33)
[2017-03-04] MEDS: IPRATROPIUM BROM 0.5 MG/2.5ML INH SOL NEB SCH ×4 (00:13→18:33)
[2017-03-04] MEDS: METOCLOPRAMIDE HCL 5MG/ml INJ 2ml VIAL IV SCH ×3 (05:53→22:00)
[2017-03-04] MEDS: InsuLIN REG 1unit/0.01ml Soln (100units/ml) SC SCH ×5 (05:53→23:44)
[2017-03-04] MEDS: ACCU-CHEK COMFORT CURVE STRIP VI SCH ×5 (05:54→23:44)
[2017-03-04] MEDS: NOREPINEPHRINE 8 MG/250ML KIT 250 ML IV SCH (06:14)
[2017-03-04] MEDS: SODIUM CHLORIDE 0.9% 1,000 ML IV SCH (06:15)
[2017-03-04] MEDS: PANTOPRAZOLE 40 MG/10 ML VIAL IV SCH (10:16)
[2017-03-04] MEDS: ASPirin 81 mg TAB PO SCH (10:16)
[2017-03-04] MEDS: cefTRIAXone 1GM/10ml IVPUSH 10 ML IV SCH (10:16)
[2017-03-04] MEDS: AMIODARONE HCL 900 MG in DEXTROSE 500 ML IV SCH (10:16)
[2017-03-04] MEDS: HEPARIN SODIUM (PORCINE) 5000 UNITS/ML 1ML VIAL SC SCH ×2 (10:17→21:52)
[2017-03-04] MEDS: MIDAZOLAM DRIP 50 mg/50mL 50 ML IV SCH (17:23)
[2017-03-04 18:24] LABS: Protein, Urine 172.5 mg/dL (0.0-11.9)
[2017-03-05] VITALS (77 sets, daily range): BP systolic 86–139; BP diastolic 40–88
[2017-03-05] MEDS: IPRATROPIUM BROM 0.5 MG/2.5ML INH SOL NEB SCH ×4 (00:26→18:27)
[2017-03-05] MEDS: ALBUTEROL SULF 2.5 MG/0.5ML(0.5%) NEB SOLN NEB SCH ×4 (00:26→18:27)
[2017-03-05] MEDS: NOREPINEPHRINE 8 MG/250ML KIT 250 ML IV SCH ×2 (03:00→15:33)
[2017-03-05 05:29] LABS: Albumin 1.9 g/dL (3.4-5.0); BUN/Creatinine Ratio 19.2; Bilirubin, Total 0.4 mg/dL (0.2-1.0); Calcium 8.3 mg/dL (8.5-10.1); Phosphorus 3.7 mg/dL (2.5-4.90); Total Protein 6.5 g/dL (6.4-8.2)
[2017-03-05] MEDS: InsuLIN REG 1unit/0.01ml Soln (100units/ml) SC SCH ×3 (05:33→18:00)
[2017-03-05] MEDS: METOCLOPRAMIDE HCL 5MG/ml INJ 2ml VIAL IV SCH ×3 (05:33→21:30)
[2017-03-05] MEDS: ACCU-CHEK COMFORT CURVE STRIP VI SCH ×3 (05:34→18:27)
[2017-03-05 05:40] LABS: Potassium 2.8 mmol/L (3.5-5.1)
[2017-03-05] MEDS: AMIODARONE HCL 900 MG in DEXTROSE 500 ML IV SCH (08:50)
[2017-03-05] MEDS: cefTRIAXone 1GM/10ml IVPUSH 10 ML IV SCH (09:00)
[2017-03-05] MEDS ORDERED: POTASSIUM CHL 10% (20 MEQ/15ML) 15ml ORAL SOLN PO ONE (09:30)
[2017-03-05] MEDS: PANTOPRAZOLE 40 MG/10 ML VIAL IV SCH (09:58)
[2017-03-05] MEDS: ASPirin 81 mg TAB PO SCH (09:58)
[2017-03-05] MEDS: HEPARIN SODIUM (PORCINE) 5000 UNITS/ML 1ML VIAL SC SCH ×2 (09:59→21:30)
[2017-03-05] MEDS: MIDAZOLAM DRIP 50 mg/50mL 50 ML IV SCH (11:15)
[2017-03-05] MEDS ORDERED: FREE WATER GT SCH (12:00)
[2017-03-06] VITALS (71 sets, daily range): BP systolic 75–133; BP diastolic 41–87
[2017-03-06] MEDS: IPRATROPIUM BROM 0.5 MG/2.5ML INH SOL NEB SCH ×4 (00:09→18:35)
[2017-03-06] MEDS: ALBUTEROL SULF 2.5 MG/0.5ML(0.5%) NEB SOLN NEB SCH ×4 (00:09→18:36)
[2017-03-06] MEDS: ACCU-CHEK COMFORT CURVE STRIP VI SCH ×5 (00:13→23:55)
[2017-03-06] MEDS: NOREPINEPHRINE 8 MG/250ML KIT 250 ML IV SCH (05:00)
[2017-03-06] MEDS: METOCLOPRAMIDE HCL 5MG/ml INJ 2ml VIAL IV SCH ×3 (05:58→21:55)
[2017-03-06] MEDS: InsuLIN REG 1unit/0.01ml Soln (100units/ml) SC SCH ×5 (05:58→23:55)
[2017-03-06] MEDS: AMIODARONE HCL 900 MG in DEXTROSE 500 ML IV SCH (08:50)
[2017-03-06] MEDS: cefTRIAXone 1GM/10ml IVPUSH 10 ML IV SCH (09:00)
[2017-03-06] MEDS: PANTOPRAZOLE 40 MG/10 ML VIAL IV SCH (10:00)
[2017-03-06] MEDS: ASPirin 81 mg TAB PO SCH (10:00)
[2017-03-06] MEDS: HEPARIN SODIUM (PORCINE) 5000 UNITS/ML 1ML VIAL SC SCH ×2 (10:02→21:55)
[2017-03-06 10:42] LABS: Basophils # (auto) 0.1 uL; Basophils % (auto) 0.6 % (0.0-2.0); Eosinophils # (auto) 0.5 uL; Eosinophils % (auto) 5.8 % (0.0-7.0); Hematocrit 39.1 % (41.0-53.0); Lymphocytes # (auto) 1.2 uL; Lymphocytes % (auto) 15.6 % (10.0-50.0); Mean Corpuscular Hemoglobin 28.7 pg (28.0-32.0); Mean Corpuscular Hgb Conc. 30.7 g/dL (32.0-36.0); Mean Corpuscular Volume 93.6 fL (80.0-100.0); Monocytes # (auto) 0.8 uL; Monocytes % (auto) 10.5 % (0.0-12.0); Neutrophils # (auto) 5.3 uL; Neutrophils % (auto) 67.5 % (37.0-80.0); Nucleated Red Blood Cells % 0.2 %; Platelet Count (auto) 228 10^3/uL (140-450); Red Blood Cells 4.18 10^6/uL (4.5-5.90); White Blood Cell 7.8 10^3/uL (4.4-10.8)
[2017-03-06 10:43] LABS: Albumin 1.8 g/dL (3.4-5.0); BUN/Creatinine Ratio 18.5; Bilirubin, Total 0.4 mg/dL (0.2-1.0); Calcium 8.8 mg/dL (8.5-10.1); Total Protein 6.5 g/dL (6.4-8.2)
[2017-03-06 10:49] LABS: Potassium 2.9 mmol/L (3.5-5.1)
[2017-03-06] MEDS: MIDAZOLAM DRIP 50 mg/50mL 50 ML IV SCH (11:14)
[2017-03-06] MEDS ORDERED: POTASSIUM CHL 10% (20 MEQ/15ML) 15ml ORAL SOLN PO ONE (12:00)
[2017-03-06] MEDS ORDERED: POTASSIUM CHL 20MEQ/50ML 50 ML IV ONE (12:30)
[2017-03-06] MEDS: D5W/SOD CHL 0.45%/KCL 20MEQ 1,000 ML IV SCH (12:30)
[2017-03-06] MEDS ORDERED: POTASSIUM CHL 10% (20 MEQ/15ML) 15ml ORAL SOLN GT ONE (12:30)
[2017-03-06] MEDS: FREE WATER GT SCH ×3 (14:00→21:55)
[2017-03-07] VITALS (96 sets, daily range): BP systolic 63–156; BP diastolic 28–89
[2017-03-07] MEDS: ALBUTEROL SULF 2.5 MG/0.5ML(0.5%) NEB SOLN NEB SCH ×4 (00:05→18:18)
[2017-03-07] MEDS: IPRATROPIUM BROM 0.5 MG/2.5ML INH SOL NEB SCH ×4 (00:05→18:18)
[2017-03-07] MEDS: D5W/SOD CHL 0.45%/KCL 20MEQ 1,000 ML IV SCH ×2 (01:50→18:30)
[2017-03-07] MEDS: FREE WATER GT SCH ×6 (02:14→22:48)
[2017-03-07] MEDS: METOCLOPRAMIDE HCL 5MG/ml INJ 2ml VIAL IV SCH ×3 (06:00→22:54)
[2017-03-07] MEDS: InsuLIN REG 1unit/0.01ml Soln (100units/ml) SC SCH ×3 (06:00→18:00)
[2017-03-07] MEDS: NOREPINEPHRINE 8 MG/250ML KIT 250 ML IV SCH (06:14)
[2017-03-07] MEDS: ACCU-CHEK COMFORT CURVE STRIP VI SCH ×3 (06:24→18:30)
[2017-03-07] MEDS: cefTRIAXone 1GM/10ml IVPUSH 10 ML IV SCH (09:30)
[2017-03-07] MEDS: PANTOPRAZOLE 40 MG/10 ML VIAL IV SCH (09:56)
[2017-03-07] MEDS: HEPARIN SODIUM (PORCINE) 5000 UNITS/ML 1ML VIAL SC SCH ×2 (09:56→22:55)
[2017-03-07] MEDS: MIDAZOLAM DRIP 50 mg/50mL 50 ML IV SCH (11:15)
[2017-03-07] MEDS ORDERED: METOCLOPRAMIDE HCL 5MG/ml INJ 2ml VIAL ONE (22:49)
[2017-03-08] VITALS (61 sets, daily range): BP systolic 0–120; BP diastolic 0–72
[2017-03-08] MEDS: ALBUTEROL SULF 2.5 MG/0.5ML(0.5%) NEB SOLN NEB SCH ×2 (00:16→05:50)
[2017-03-08] MEDS: IPRATROPIUM BROM 0.5 MG/2.5ML INH SOL NEB SCH ×2 (00:16→05:50)
[2017-03-08] MEDS: ACCU-CHEK COMFORT CURVE STRIP VI SCH ×3 (00:25→12:00)
[2017-03-08] MEDS: FREE WATER GT SCH ×3 (02:01→10:00)
[2017-03-08] MEDS: D5W/SOD CHL 0.45%/KCL 20MEQ 1,000 ML IV SCH ×2 (04:30→07:51)
[2017-03-08] MEDS ORDERED: METOCLOPRAMIDE HCL 5MG/ml INJ 2ml VIAL ONE (05:59)
[2017-03-08] MEDS: InsuLIN REG 1unit/0.01ml Soln (100units/ml) SC SCH ×3 (06:00→12:00)
[2017-03-08] MEDS: METOCLOPRAMIDE HCL 5MG/ml INJ 2ml VIAL IV SCH (06:02)
[2017-03-08] MEDS: NOREPINEPHRINE 8 MG/250ML KIT 250 ML IV SCH ×2 (06:14→07:51)
[2017-03-08] MEDS: cefTRIAXone 1GM/10ml IVPUSH 10 ML IV SCH (09:00)
[2017-03-08] MEDS: PANTOPRAZOLE 40 MG/10 ML VIAL IV SCH (10:00)
[2017-03-08] MEDS: HEPARIN SODIUM (PORCINE) 5000 UNITS/ML 1ML VIAL SC SCH (10:15)
[2017-03-08] MEDS: MIDAZOLAM DRIP 50 mg/50mL 50 ML IV SCH (11:15)
[2017-03-08] MEDS ORDERED: LORazepam 2MG/ML-1ML VIAL IV PRN (14:00)
[2017-03-08] MEDS ORDERED: MORPHINE SULFATE 10 MG/ML INJ 1ML SDV IV PRN (14:00)
[2017-03-08] MEDS ORDERED: NOREPINEPHRINE 8 MG/250ML KIT 250 ML IV ONE (17:48)
== END 2017-03-09 01:29 | disposition expired | DRG 870 ==
LOC: ER 01:38 → TELE 01:39 → ICU WEST 03-01 23:21
PROVIDERS: ADMIT Nurse Practitioner; ATTEND Internal Medicine
PROC: 5A1955Z Respiratory Ventilation, Greater than 96 Consecutive Hours (ICD-10-PCS; principal; 2017-02-27)
PROC: 0BH17EZ Insertion of Endotracheal Airway into Trachea, Via Natural or Artificial Opening (ICD-10-PCS; 2017-02-27)
PROC: 02HV33Z Insertion of Infusion Device into Superior Vena Cava, Percutaneous Approach (ICD-10-PCS; 2017-02-27)
PROC: 5A12012 Performance of Cardiac Output, Single, Manual (ICD-10-PCS; 2017-02-27)
DX: A41.9 Sepsis, unspecified organism (principal); I46.9 Cardiac arrest, cause unspecified; I21.4 Non-ST elevation (NSTEMI) myocardial infarction; J96.01 Acute respiratory failure with hypoxia; G93.6 Cerebral edema; J18.9 Pneumonia, unspecified organism; N17.0 Acute kidney failure with tubular necrosis; G93.1 Anoxic brain damage, not elsewhere classified; D68.59 Other primary thrombophilia; G93.41 Metabolic encephalopathy; J44.0 Chronic obstructive pulmonary disease with (acute) lower respiratory infection; E87.0 Hyperosmolality and hypernatremia; I50.42 Chronic combined systolic (congestive) and diastolic (congestive) heart failure; Z68.41 Body mass index [BMI] 40.0-44.9, adult; I11.0 Hypertensive heart disease with heart failure; Z51.5 Encounter for palliative care; Z66 Do not resuscitate; G40.409 Other generalized epilepsy and epileptic syndromes, not intractable, without status epilepticus; D64.9 Anemia, unspecified; E11.9 Type 2 diabetes mellitus without complications; E66.01 Morbid (severe) obesity due to excess calories; E78.5 Hyperlipidemia, unspecified; G47.33 Obstructive sleep apnea (adult) (pediatric); I25.10 Atherosclerotic heart disease of native coronary artery without angina pectoris; R34 Anuria and oliguria; E87.6 Hypokalemia; K76.0 Fatty (change of) liver, not elsewhere classified; I48.0 Paroxysmal atrial fibrillation; Z83.3 Family history of diabetes mellitus; Z85.828 Personal history of other malignant neoplasm of skin; Z86.73 Personal history of transient ischemic attack (TIA), and cerebral infarction without residual deficits; Z88.5 Allergy status to narcotic agent
CPT/HCPCS: 31500; 36415; 36556; 36600; 51702; 70450; 71045; 71260; 74177; 76775; 80048; 80053; 80307; 81001; 82570; 82805; 82962; 83036; 83605; 83735; 83880; 84100; 84156; 84300; 84484; 85007; 85025; 85027; 85379; 85610; 85730; 87040; 87070; 87081; 87205; 87400; 92950; 93005; 93306; 94002; 94003; 94640; 95819; 96365; 96367; 96375; 99291; C9113; J1815; J1956; J2543; J2704; J7060